=== PATIENT | male | born 1930 | race Caucasian/White ===

== ENCOUNTER → 2016-10-30 | Outpatient (CLI) | payer OTHER ==
[~2016-10-30] MED LIST: ALLO300T2 PO; AMLO5TAB4 PO; ASPI-435 PO; FRS/40 PO; INSU70IN2 SC; LOSA1TAB38 PO; METO50TA16 PO; POTA-74 PO; SIMV80TA2 PO; WARF-246 PO; WARF4TAB43 PO
[2016-10-30 13:33] LABS: BLOOD UREA NITROGEN 21 mg/dl (7-18); BUN/CREATININE RATIO 18.9 (10-20); CALCIUM 8.8 mg/dl (8.5-10.1); CARBON DIOXIDE 26 mmol/L (21-32); CHLORIDE 106 mmol/L (98-107); CHOLESTEROL 112 mg/dl (0-200); GLUCOSE 143 mg/dl (70-99); POTASSIUM 3.9 mmol/L (3.5-5.1); SODIUM 139 mmol/L (136-145); TRIGLYCERIDES 55 mg/dl (0-150); VERY LOW DENSITY LIPOPROT CALC 11 mg/dl
[2016-10-30 13:36] LABS: CHOLESTEROL/HDL RATIO 2.6; ESTIMATED AVERAGE GLUCOSE 166 mg/dl; HA1C FLAG Normal (Normal); HDL CHOLESTEROL 43 mg/dl
[2016-10-30 13:55] LABS: RATIO 15.4 mcg/mg (0-30.0)
== END | disposition home or self-care (01) ==
LOC: C.LABSPEC 12:24
PROVIDERS: ATTEND Internal Medicine
DX: E11.9 Type 2 diabetes mellitus without complications (principal); I10 Essential (primary) hypertension; E78.5 Hyperlipidemia, unspecified

== ENCOUNTER → 2017-11-12 | Outpatient (CLI) | payer OTHER ==
[2017-11-12 14:57] LABS: BLOOD UREA NITROGEN 19 mg/dl (7-18); CALCIUM 8.3 mg/dl (8.5-10.1); CARBON DIOXIDE 26 mmol/L (21-32); CREATININE 1.04 mg/dl (0.60-1.40); GLUCOSE 122 mg/dl (70-99); POTASSIUM 3.9 mmol/L (3.5-5.1); SODIUM 139 mmol/L (136-145)
[2017-11-12 15:04] LABS: CHOLESTEROL 101 mg/dl (0-200); LDL CHOLESTEROL (DIRECT) 61 mg/dl
[2017-11-13 06:04] LABS: HEMOGLOBIN A1C 7.2 % (4.5-5.6)
== END | disposition home or self-care (01) ==
LOC: C.LABSPEC 13:27
PROVIDERS: ATTEND Internal Medicine
DX: E78.5 Hyperlipidemia, unspecified (principal); I10 Essential (primary) hypertension; E11.9 Type 2 diabetes mellitus without complications; Z00.00 Encounter for general adult medical examination without abnormal findings

== ENCOUNTER → 2017-11-17 | Outpatient (CLI) | payer OTHER ==
[~2017-11-17] MED LIST changes: +MULT-506 PO; +WARF5TAB90 PO; +WARF7.5T PO
[2017-11-17 15:10] LABS: BASO % 0.4 %; BASO ABS # 0.04 K/uL (0-0.2); EOS % 3.7 %; HEMATOCRIT 43.8 % (42-52); HEMOGLOBIN 14.7 g/dL (14.0-18.0); IG# 0.03 K/uL (0.00-0.02); LYMPH % 22.4 %; LYMPH ABS # 2.39 K/uL (1.2-3.4); MEAN CELL VOLUME 96.1 fL (80-100); MEAN CORPUSCULAR HEMOGLOBIN 32.2 pg (25-34); MEAN CORPUSCULAR HGB CONC 33.6 g/dl (32-36); MEAN PLATELET VOLUME 10.1 fL (7.4-10.4); MONO % 9.9 %; MONO ABS # 1.06 K/uL (0.11-0.59); NEUT % 63.3 %; NEUT ABS # 6.77 K/uL (1.4-6.5); PLATELET COUNT 166 K/uL (130-400); RED CELL DISTRIBUTION WIDTH CV 13.9 % (11.5-14.5); RED CELL DISTRIBUTION WIDTH SD 48.9 fL (36.4-46.3); WHITE BLOOD COUNT 10.69 K/uL (4.8-10.8)
== END | disposition home or self-care (01) ==
LOC: C.LAB1850 13:47
PROVIDERS: ATTEND Internal Medicine Cardiovascular Disease
DX: I50.9 Heart failure, unspecified (principal)

== ENCOUNTER 2017-11-25 10:56 | Day surgery (SDC) | payer OTHER ==
[~2017-11-25] VITALS: Ht 182.9 cm; Wt 118.0 kg
[~2017-11-25 10:56] MED LIST changes: +CEFAZOLIN 1000MG IV PUSH 7.5 ML IV SCH; +LACTATED RINGER'S 1000ML IV SCH; -MULT-506 PO; -WARF5TAB90 PO; -WARF7.5T PO
[2017-11-25] MEDS ORDERED: WARF7.5T PO ×2 (12:16)
[2017-11-25] MEDS ORDERED: WARF5TAB90 PO ×2 (12:16)
[2017-11-25] MEDS ORDERED: MULT-506 PO ×2 (12:18)
[2017-11-25 12:20] VITALS: BP 131/76; PULSE 65; TEMP 36.7; O2SAT 92; Ht 182.9 cm; Wt 118.0 kg
[2017-11-25 12:23] LABS: INR 1.1 (0.9-1.1)
[2017-11-25] MEDS ORDERED: LIDOCAINE HCL 1% 20 ML VIAL ONE (13:23)
[2017-11-25] MEDS ORDERED: FENTANYL CITRATE INJ 50 MCG/1 ML 2 ML VIAL ONE (13:28)
[2017-11-25] MEDS ORDERED: BACITRACIN OINT 0.9 GM PKT ONE (13:28)
[2017-11-25] MEDS ORDERED: MIDAZOLAM HCL 5 MG/ML 1 ML VIAL ONE (13:28)
--- NOTE | 2017-11-25 13:38 | History & Physical Bridge Note ---
H&P Re-Evaluation Bridge Note: I have examined the patient, reviewed the History & Physical and in the interval since the performance of the History & Physical I have noted the following changes of clinical significance: No changes noted. I reviewed the indications, procedure, risks and alternatives with the patient and his family and they understand and he agrees to proceed. Consent obtained. I also reviewed the risks of sedation and he is agreeable. Consent obtained. His INR today is 1.1.
--- NOTE | 2017-11-25 13:39 | Pre Sedation Assessment ---
Pre Sedation Assessment General Date of Sedation: Nov 25, 2017. Vital Signs Past 12 Hours Date Time Temp Pulse Resp B/P (MAP) Pulse Ox O2 Delivery O2 Flow Rate FiO2 11/25/17 12:20 36.7 65 20 131/76 (94) 92 Room Air Review Cardiovascular: regular rate, rhythm, no murmur Lungs: lungs clear Pre-Sedation Airway Assessment Smoking Status: Former Smoker Hx of Sleep Apnea: Yes Hx of difficult intubation: No Short Thick Neck: No Thyro-mental Distance: > 3 Finger Breadths Mallampati Classification: Class II ASA Classification: Class II NPO Status Date of Last Intake of Fluids: Nov 24, 2017 Time of Last Intake of Fluids: 2354 Date of Last Intake of Solids: Nov 24, 2017 Time of Last Intake of Solids: 2354 Procedure Planning Contraindications for Sedation: None Current Medications Reviewed: Yes Notes The planned sedation has been discussed with the patient. Informed Consent was obtained. I have identified the patient, determined the appropriateness of sedation and have assessed the patient immediately prior to the procedure. All medicine(s) and interventions are by my order.
[2017-11-25] MEDS ORDERED: CEFAZOLIN SOD 1 GM VIAL ONE (13:42)
--- NOTE | 2017-11-25 14:51 | Post Sedation Assessment ---
Post Sedation Assessment General Date of Sedation Nov 25, 2017. Vital Signs: Vital Signs Past 12 Hours Date Time Temp Pulse Resp B/P (MAP) Pulse Ox O2 Delivery O2 Flow Rate FiO2 11/25/17 12:20 36.7 65 20 131/76 (94) 92 Room Air Post Procedure Recovery Score Activity: (2) Moves 4 extremities * Respiration: (2) Deep breath/cough Circulation: (2) +/-20% PreAnes Value Consciousness: (2) Fully Awake Oxygen Saturation: (2) > 92% On Room Air Post Anesthesia Score: 10 Discharge Sedation Level of Care: Fast Track Phase II Post Sedation Plan On clinical assessment, the patient appears to have tolerated the sedation without complications. Patient is recovering as anticipated. Patient will continue to be monitored by nursing and may be discharged when sedation discharge criteria are met per below protocol. Upon Completions of procedure and additional 15 minutes continue every 5 minute vital signs and the P.A.R. score; then discharge to a Phase I or Fast Track to Phase II per the following guidelines: * Discharge Patient to appropriate Phase II area if PAR is 8 or greater or return to pre- procedure baseline. The post - procedure orders will be as directed. * If PAR score is less than 8 or not return to pre-procedure baseline then patient will follow Phase I monitoring till PAR is reached for Phase II. The Phase I may be done in procedure room or may call to secure a Phase I area. * If naloxone or flumazenil are used for reversal, hold in Phase I for an additional 60 -120 minutes before discharge to Phase II. Please call the Sedation Physician to re-evaluate and complete post-note for discharge to Phase II area. Do NOT discharge from procedure sedation or Phase 1 until post- sedation evaluation note is complete by procedure /sedation MD Sedation Discharge Instructions to be given to the patient at discharge to home.
--- NOTE | 2017-11-25 14:51 | [facility] Operative Report ---
Operative Report Operative Date Nov 25, 2017. Pre-Operative Diagnosis Pacemaker CINDY Permanent atrial fibrillation Complete heart block Post-Operative Diagnosis Same Procedure(s) Performed Single-chamber pacemaker replacement Surgeon Dr. Beltrán Mri Tech Surgeon(s) None Estimated Blood Loss 30 cc Findings Stable chronic lead measurements, chronic lead could be used Specimens Old pacemaker, return to [employer] Anesthesia Local with sedation Complication(s) None Disposition MTU Description of Procedure After obtaining informed consent for the procedure, the patient was brought to the laboratory being NPO after midnight. After identification in the laboratory the patient was prepped and draped in the standard sterile manner for a left- sided device replacement. The left prepectoral region was anesthetized with 1% lidocaine local anesthetic and once adequate anesthesia was obtained a 5 cm incision was made through the old implant scar and carried down to the pacemaker generator. The generator was dissected free of tissue and explanted. A bacitracin-soaked sponge (50,000 units in 50 cc normal saline solution) was placed in the pocket. The pacemaker was removed from the leads and connected to an external pacing system. Pacing and sensing characteristics were evaluated in the ventricular lead as noted on the implant data sheet. A new pacemaker was attached to the lead and found to be functioning normally. The bacitracin-soaked sponge was removed from the pocket, the ICD was placed in the pocket with the lead coiled beneath it. The incision was closed with a running double subcutaneous closure of 3-0 Vicryl absorbable suture followed by a running subcuticular skin closure of 4-0 Vicryl absorbable suture. I attest to the content of the Intraoperative Record and any orders documented therein. Any exceptions are noted below.
[2017-11-25 15:00] VITALS: BP 125/65; PULSE 62; TEMP 36.7; O2SAT 90
[2017-11-25] MEDS ORDERED: KETOROLAC TROMETHAMINE 10 MG TAB PO PRN (15:00)
[2017-11-25] MEDS ORDERED: ACETAMINOPHEN 325 MG TAB PO PRN (15:00)
[2017-11-25 15:25] VITALS: BP 128/69; PULSE 60; O2SAT 96
[2017-11-25 16:00] VITALS: BP 109/51; PULSE 61; O2SAT 93
--- NOTE | 2017-11-25 16:23 | Discharge Instructions ---
Discharge Instructions Date of Service Nov 25, 2017. Admission Reason for Admission: Pacemaker battery depletion Discharge Discharge Diagnosis / Problem: Pacemaker replacement Discharge Goals Goal(s): Improve disease control Activity Recommendations Activity Limitations: per Instructions/Follow-up section . Instructions / Follow-Up Instructions / Follow-Up ACTIVITY RECOMMENDATIONS: * Do not raise affected arm over head for 2 weeks. SPECIAL CARE INSTRUCTIONS: * If bleeding occurs, apply direct pressure to area for 5 minutes. * Call your doctor if you have severe pain, fever, drainage or bleeding at site. * Keep dressing on and dry. * Keep any scheduled doctor's appointment. * Implant Card - hand held device with website information given. SKIN IRRITATION: * You may experience some redness and/or swelling in the area where radiation was administered. If any skin irritation occurs, please contact your family physician. FOLLOW UP VISIT: Dr. Beltrán November 9:30 AM. Current Hospital Diet Patient's current hospital diet: AHA Diet (Heart Healthy) Discharge Diet Recommended Diet: AHA Diet (Heart Healthy), Diabetes Type 2 Diet Pending Studies Studies pending at discharge: no Laboratory Results Hemoglobin A1c Test 11/12/17 08:45 Range/Units Estimated Average Glucose 160 mg/dl Hemoglobin A1c 7.2 H 4.5-5.6 % Lipid Panel Test 11/12/17 08:45 Range/Units Triglycerides Level 68 0-150 mg/dl Cholesterol Level 101 0-200 mg/dl HDL Cholesterol 41 mg/dl LDL Cholesterol Direct 61 mg/dl Cholesterol/HDL Ratio 2.5 LDL Cholesterol, Calculated mg/dl Medical Emergencies . Who to Call and When: Medical Emergencies: If at any time you feel your situation is an emergency, please call 911 immediately. . Non-Emergent Contact Non-Emergency issues call your: Primary Care Provider . . "Provider Documentation" section prepared by Lex Beltrán. .
[2017-11-25 16:31] VITALS: BP 110/65; PULSE 60; TEMP 36.7; O2SAT 94
[2017-11-25 17:04] VITALS: BP 120/66; PULSE 61; TEMP 36.6; O2SAT 94
== END 2017-11-25 17:13 | disposition home or self-care (01) ==
LOC: C.ACU 10:56
PROVIDERS: ATTEND Internal Medicine Cardiovascular Disease
DX: Z45.010 Encounter for checking and testing of cardiac pacemaker pulse generator [battery] (principal); I48.2 Chronic atrial fibrillation; I44.2 Atrioventricular block, complete; Z79.01 Long term (current) use of anticoagulants; E78.5 Hyperlipidemia, unspecified; E11.9 Type 2 diabetes mellitus without complications; I50.9 Heart failure, unspecified; M10.9 Gout, unspecified; Z87.891 Personal history of nicotine dependence; Z79.899 Other long term (current) drug therapy; Z79.82 Long term (current) use of aspirin; Z79.4 Long term (current) use of insulin

== ENCOUNTER 2022-03-14 11:40 | Inpatient (IN) ==
[2022-03-14 12:44] LABS: Basophils # (auto) 0.06 K/uL (0-0.2); Basophils % (auto) 0.6 %; Eosinophils # (auto) 0.27 K/uL (0-0.50); Eosinophils % (auto) 2.6 %; Hematocrit (blood only) 38.2 % (40.1-51.0); Hemoglobin 12.5 g/dl (14.0-18.0); Immature Granulocytes # (auto) 0.18 K/uL (0.00-0.02); Immature Granulocytes % (auto) 1.7 %; Lymphocytes # (auto) 1.19 K/uL (1.2-3.4); Lymphocytes % (auto) 11.3 %; Mean Corpuscular Hgb Conc 32.7 g/dL (32.0-36.0); Mean Corpuscular Volume 94.8 fL (80.0-100.0); Mean Platelet Volume 9.7 fL (9.4-12.4); Monocytes # (auto) 0.99 K/uL (0.24-0.82); Monocytes % (auto) 9.4 %; Neutrophils # (auto) 7.87 K/uL (1.4-6.5); Neutrophils % (auto) 74.4 %; Platelet Count 179 K/uL (130-400); RDW Coefficient of Variation 14.8 % (11.5-14.5); RDW Standard Deviation 51.8 fL (36.4-46.3); Red Blood Count 4.03 M/uL (4.63-6.08); White Blood Count 10.56 K/ul (4.8-10.8)
[2022-03-14 13:03] LABS: INR 1.5 (0.9-1.1); Partial Thromboplastin Ratio 1.6; Partial Thromboplastin Time 42.7 Seconds (21.0-31.0)
[2022-03-14 13:13] LABS: Troponin I High Sensitivity 11.8 pg/ml (0-20)
[2022-03-14 13:14] LABS: Alanine Aminotransferase 12 U/L (7-52); Albumin Level 3.6 gm/dl (3.4-5.0); Alkaline Phosphatase 83 U/L (34-104); Anion Gap 5 (3-11); Aspartate Aminotransferase 22 U/L (13-39); BUN Creatinine Ratio 28.9 (10-20); Blood Urea Nitrogen 33 mg/dl (6-23); Calcium 9.1 mg/dl (8.5-10.1); Carbon Dioxide 27 mmol/L (21-32); Chloride 106 mmol/L (98-107); Est GFR (African American) 65.7 ml/min; Est GFR (Non-African American) 56.7 ml/min; Globulin 3.7 gm/dl (2.5-4.0); Glucose 99 mg/dl (70-99(Fasting)); Potassium 4.2 mmol/L (3.5-5.1); Sodium 138 mmol/L (136-145); Total Protein 7.3 gm/dl (6.0-8.3)
[2022-03-14 13:43] LABS: Adenovirus PCR Not Detected (NotDetected); Bordetella parapertussis PCR Not Detected (NotDetected); Bordetella pertussis PCR Not Detected (NotDetected); Chlamydia pneumoniae PCR Not Detected (NotDetected); Coronavirus 229E PCR Not Detected (NotDetected); Coronavirus CoV-2 (COVID19)PCR Not Detected (NotDetected); Coronavirus HKU1 PCR Not Detected (NotDetected); Coronavirus NL63 PCR Not Detected (NotDetected); Coronavirus OC43PCR Not Detected (NotDetected); Human Metapneumovirus PCR Not Detected (NotDetected); Influenza A PCR Not Detected (NotDetected); Influenza B PCR Not Detected (NotDetected); Mycoplasma pneumoniae PCR Not Detected (NotDetected); Parainfluenza Virus 1 PCR Not Detected (NotDetected); Parainfluenza Virus 2 PCR Not Detected (NotDetected); Parainfluenza Virus 3 PCR Not Detected (NotDetected); Parainfluenza Virus 4 PCR Not Detected (NotDetected); Respiratory Syncytial VirusPCR Not Detected (NotDetected); Rhinovirus/Enterovirus PCR Not Detected (NotDetected)
--- NOTE | 2022-03-14 14:14 | Emergency Department Note ---
History of Present Illness General Chief Complaint: Shortness of Breath/Dyspnea Stated Complaint: SHORTNESS OF BREATH;SWELLING Time Seen by Provider: 03/14/22 14:00 History of Present Illness Provider Complaint: shortness of breath Onset (ago): day(s) (1) Severity: moderate Consistency/Duration: + progressively worsening Relieved By: + oxygen, + rest and + upright position Exacerbated By: + lying flat and + exertion Context: no recent illness Associated symptoms: + orthopnea and + chest congestion; no chest pain, no fever, no cough, no wheezing, no sputum production, no hemoptysis or no nausea/vomiting HPI Narrative: Patient reports increased swelling of the bilateral lower extremities. He states he was seen at wound care today and referred to the emergency department for low oxygen level. Home Medications Medication Instructions Recorded Confirmed Type allopurinol 300 mg tablet 300 mg PO DAILY 11/23/18 03/14/22 History amlodipine 10 mg tablet 10 mg PO DAILY #90 tabs 11/23/18 03/14/22 History furosemide 40 mg tablet 40 mg PO .COMPLEX 11/23/18 03/14/22 History losartan 100 mg tablet 100 mg PO DAILY 11/23/18 03/14/22 History multivitamin 1 tab PO DAILY 11/23/18 03/14/22 History potassium chloride 10 mEq 10 meq PO BID 11/23/18 03/14/22 History tablet,extended release metformin 1,000 mg tablet 1,000 mg PO BID 03/18/19 03/14/22 History simvastatin 80 mg tablet 40 mg PO DAILY 06/28/19 03/14/22 History cholecalciferol (vitamin D3) 25 25 mcg PO DAILY 01/01/21 03/14/22 History mcg (1,000 unit) capsule metoprolol succinate 100 mg 100 mg PO DAILY #90 tabs 01/01/21 03/14/22 Rx tablet,extended release 24 hr rivaroxaban 20 mg tablet (Xarelto) 20 mg PO DAILY #90 tabs 01/01/21 03/14/22 Rx clotrimazole 1 % topical cream 1 applic topical .COMPLEX #45 grams 06/29/21 03/14/22 Rx ammonium lactate 12 % lotion 1 applic topical DAILY 30 days 07/03/21 03/14/22 Rx #400 grams gabapentin 300 mg capsule 300 mg PO DAILY #90 caps 01/24/22 03/14/22 Rx insulin aspar prt-insulin aspart 14 unit subcut QPM 01/25/22 03/14/22 History 100 unit/mL (70-30) subcutaneous soln (Novolog Mix 70-30 U-100 Insuln) cephalexin 500 mg capsule 500 mg PO TID 14 days #42 caps 03/04/22 03/14/22 Rx Allergies Allergy/AdvReac Type Severity Reaction Status Date / Time No Known Drug Allergies Allergy Verified 03/14/22 10:55 Past Med/Surg History Medical History Acute diverticulitis (06/25/13) Atrial fibrillation 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 Fall 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 Pacemaker Surgical History Cardiac pacemaker Status post partial amputation of foot Family History Brother Colorectal cancer Denies family history of Ovarian cancer Prostate cancer Myocardial infarction Breast cancer Social History Smoking Status: Never smoker Second Hand Exposure: No; Hx Alcohol Use: No Hx Substance Use: No Preferred Language: Thai Communication Ability: Effective Visual Impairment: Limited Hearing Ability: Use of Hearing Aid Wheel Inspector Required: No Beliefs That Will Affect Care: None marital status: / Current Living Situation: Alone current occupational status: retired How many Children do You have: 4 How many Children do You have Comment: all children local and able to help with care as needed Feels Safe at Home: Yes Childhood Exposure to Second-Hand Smoke: No during the past year weight has: decreased > 10 lbs Dental Care, Regularly: No Physical Activity Frequency: 5-6 Times per Week Seatbelt Use: always Sunscreen Use: No Review of Systems A total of 10 systems reviewed and were otherwise negative Physical Exam Vital Signs: Vital Signs - 24 hr 03/14/22 11:56 03/14/22 12:29 03/14/22 14:17 Temperature 35.8 C L 36.5 C Temperature Source Temporal Artery Sc an Oral Pulse Rate 74 Pulse Rhythm Regular Pulse Strength Normal Respiratory Rate 18 Blood Pressure 99/58 L Blood Pressure Tami n 71 Pulse Oximetry 93 98 Oxygen Delivery Me thod Room Air Nasal Cannula Oxygen Flow Rate 2 Sepsis Recent Feve r Within 48 Hours No Sepsis New/Unexpla ined Change in Men kelsey Status N/A Sepsis Action Take n by Nursing No Action Required Oxygen Flow Rate - Titration Pulse Oximetry Pos t Tiitration 03/14/22 14:18 Temperature Temperature Source Pulse Rate Pulse Rhythm Pulse Strength Respiratory Rate Blood Pressure Blood Pressure Tami n Pulse Oximetry 87 L Oxygen Delivery Me thod Room Air Oxygen Flow Rate Sepsis Recent Feve r Within 48 Hours Sepsis New/Unexpla ined Change in Men kelsey Status Sepsis Action Take n by Nursing Oxygen Flow Rate - Titration 2 Pulse Oximetry Pos t Tiitration 92 Physical Exam: Physical Exam GENERAL: He is oriented to person, place, and time. He appears well-developed and well-nourished. He does not appear distressed. HENT: Exam performed. - Head: Normocephalic and atraumatic. - Right Ear: External ear normal. No mastoid tenderness. - Left Ear: External ear normal. No mastoid tenderness. - Mouth/Throat: The oropharynx is clear and moist. No trismus in the jaw. No dental abscesses or uvula swelling. No oropharyngeal exudate or tonsillar abscesses. EYES: Conjunctivae and EOM are normal. Pupils are equal, round, and reactive to light. Right eye exhibits no discharge. Left eye exhibits no discharge. No scleral icterus. NECK: Normal range of motion. Neck supple. No JVD present. No spinous process tenderness present. No carotid bruit present. No rigidity. No tracheal deviation and normal range of motion present. No Brudzinski's sign and no Kernig's sign noted. CV: Normal rate, regular rhythm, normal heart sounds and intact distal pulses. 2+ pitting edema of the bilateral lower extremities. Palpable radial pulses bue. PULM/CHEST: Rales bilaterally ABD: The abdomen is soft. MUSC/SKEL: Normal range of motion. There is no tenderness or deformity. LYMPH: No cervical adenopathy. NEURO: Motor and sensation grossly intact. Course Course 1400: The patient was evaluated in room C8. A complete history and physical exam was performed Cardiac monitoring: An order was placed for continuous cardiac monitoring. The monitor shows a rate of 70 with paced rhythm EMR reviewed. Patient has severe valvular aortic stenosis. On echo from January 2022. Patient is on Xarelto and reports that he is compliant with his medications, no missed doses. Patient does not usually wear oxygen. 1439: Nursing staff report made with patient oxygen saturation dropped to 87% on room air. Patient was placed on 2 L nasal cannula which improved his oxygen saturation. Pacemaker is interrogated. Spoke with: [employer] union representative who states that the patient has a history of A. fib with complete heart block and he has an old lead but his pacemaker and leads are functioning okay. 1546: Vital signs stable on supplemental oxygen via nasal cannula. Labs are within normal limits with a troponin of 11.8. proBNP and VBG are still pending. Bio fire negative. Chest x-ray shows cardiomegaly with cephalization. Patient will be treated for pulmonary edema with Lasix 40 mg IV push. Patient be admitted to the [facility] Hospitalist team Dr. Thompson's team will be made notified. Medical Decision Making Laboratory Data Result diagrams: 03/14/22 12:03/14/22 12: Lab Results 03/14/22 03/14/22 03/14/22 Range/Units 12: 12: 12: WBC 10.56 (4.8-10.8) K/ul RBC 4.03 L (4.63-6.08) M/uL Hgb 12.5 L (14.0-18.0) g/dl Hct 38.2 L (40.1-51.0) % MCV 94.8 (80.0-100.0) fL MCH 31.0 (25.0-34.0) pg MCHC 32.7 (32.0-36.0) g/dL RDW Std Deviation 51.8 H (36.4-46.3) fL RDW Coeff of Joelle 14.8 H (11.5-14.5) % Plt Count 179 (130-400) K/uL MPV 9.7 (9.4-12.4) fL Immature Gran % (Auto) 1.7 % Neut % (Auto) 74.4 % Lymph % (Auto) 11.3 % [place] % (Auto) 9.4 % Eos % (Auto) 2.6 % Baso % (Auto) 0.6 % Neut # (Auto) 7.87 H (1.4-6.5) K/uL Lymph # (Auto) 1.19 L (1.2-3.4) K/uL [place] # (Auto) 0.99 H (0.24-0.82) K/uL Eos # (Auto) 0.27 (0-0.50) K/uL Baso # (Auto) 0.06 (0-0.2) K/uL Immature Gran # (Auto) 0.18 H (0.00-0.02) K/uL PT 16.0 H (9.0-12.0) Seconds INR 1.5 H (0.9-1.1) APTT 42.7 H (21.0-31.0) Seconds PTT Ratio 1.6 Sodium 138 (136-145) mmol/L Potassium 4.2 (3.5-5.1) mmol/L Chloride 106 (98-107) mmol/L Carbon Dioxide 27 (21-32) mmol/L Anion Gap 5 (3-11) BUN 33 H (6-23) mg/dl Creatinine 1.14 (0.6-1.4) mg/dl Est Cr Clr Drug Dosing Not Reportable Est GFR ( Amer) 65.7 ml/min Est GFR (Non-Af Amer) 56.7 ml/min BUN/Creatinine Ratio 28.9 H (10-20) Glucose 99 (70-99(Fasting)) mg/dl Calcium 9.1 (8.5-10.1) mg/dl Magnesium (1.7-2.4) mg/dl Total Bilirubin 1.0 (0.2-1.0) mg/dl AST 22 (13-39) U/L ALT 12 (7-52) U/L Alkaline Phosphatase 83 (34-104) U/L Troponin I High Sens 11.8 (0-20) pg/ml Total Protein 7.3 (6.0-8.3) gm/dl Albumin 3.6 (3.4-5.0) gm/dl Globulin 3.7 (2.5-4.0) gm/dl Albumin/Globulin Ratio 1.0 (0.9-2) Adenovirus (PCR) (NotDetected) B. pertussis DNA (PCR) (NotDetected) B.parapertussis DNA PCR (NotDetected) C. pneumoniae DNA (PCR) (NotDetected) Coronavirus OC43 (PCR) (NotDetected) Coronavirus HKU1 (PCR) (NotDetected) Coronavirus 229E (PCR) (NotDetected) SARS-CoV-2 (PCR) (NotDetected) Coronavirus NL63 (PCR) (NotDetected) Human Metapneumovir PCR (NotDetected) Influenza Type A (PCR) (NotDetected) Influenza Type B (PCR) (NotDetected) M. pneumoniae (PCR) (NotDetected) Parainfluenza 1 (PCR) (NotDetected) Parainfluenza 2 (PCR) (NotDetected) Parainfluenza 3 (PCR) (NotDetected) Parainfluenza 4 (PCR) (NotDetected) RSV (PCR) (NotDetected) Entero/Rhino (PCR) (NotDetected) 03/14/22 03/14/22 Range/Units 12:23 12:23 WBC (4.8-10.8) K/ul RBC (4.63-6.08) M/uL Hgb (14.0-18.0) g/dl Hct (40.1-51.0) % MCV (80.0-100.0) fL MCH (25.0-34.0) pg MCHC (32.0-36.0) g/dL RDW Std Deviation (36.4-46.3) fL RDW Coeff of Joelle (11.5-14.5) % Plt Count (130-400) K/uL MPV (9.4-12.4) fL Immature Gran % (Auto) % Neut % (Auto) % Lymph % (Auto) % [place] % (Auto) % Eos % (Auto) % Baso % (Auto) % Neut # (Auto) (1.4-6.5) K/uL Lymph # (Auto) (1.2-3.4) K/uL [place] # (Auto) (0.24-0.82) K/uL Eos # (Auto) (0-0.50) K/uL Baso # (Auto) (0-0.2) K/uL Immature Gran # (Auto) (0.00-0.02) K/uL PT (9.0-12.0) Seconds INR (0.9-1.1) APTT (21.0-31.0) Seconds PTT Ratio Sodium (136-145) mmol/L Potassium (3.5-5.1) mmol/L Chloride (98-107) mmol/L Carbon Dioxide (21-32) mmol/L Anion Gap (3-11) BUN (6-23) mg/dl Creatinine (0.6-1.4) mg/dl Est Cr Clr Drug Dosing Est GFR ( Amer) ml/min Est GFR (Non-Af Amer) ml/min BUN/Creatinine Ratio (10-20) Glucose (70-99(Fasting)) mg/dl Calcium (8.5-10.1) mg/dl Magnesium 2.1 (1.7-2.4) mg/dl Total Bilirubin (0.2-1.0) mg/dl AST (13-39) U/L ALT (7-52) U/L Alkaline Phosphatase (34-104) U/L Troponin I High Sens (0-20) pg/ml Total Protein (6.0-8.3) gm/dl Albumin (3.4-5.0) gm/dl Globulin (2.5-4.0) gm/dl Albumin/Globulin Ratio (0.9-2) Adenovirus (PCR) Not Detected (NotDetected) B. pertussis DNA (PCR) Not Detected (NotDetected) B.parapertussis DNA PCR Not Detected (NotDetected) C. pneumoniae DNA (PCR) Not Detected (NotDetected) Coronavirus OC43 (PCR) Not Detected (NotDetected) Coronavirus HKU1 (PCR) Not Detected (NotDetected) Coronavirus 229E (PCR) Not Detected (NotDetected) SARS-CoV-2 (PCR) Not Detected (NotDetected) Coronavirus NL63 (PCR) Not Detected (NotDetected) Human Metapneumovir PCR Not Detected (NotDetected) Influenza Type A (PCR) Not Detected (NotDetected) Influenza Type B (PCR) Not Detected (NotDetected) M. pneumoniae (PCR) Not Detected (NotDetected) Parainfluenza 1 (PCR) Not Detected (NotDetected) Parainfluenza 2 (PCR) Not Detected (NotDetected) Parainfluenza 3 (PCR) Not Detected (NotDetected) Parainfluenza 4 (PCR) Not Detected (NotDetected) RSV (PCR) Not Detected (NotDetected) Entero/Rhino (PCR) Not Detected (NotDetected) Imaging Data Radiologist's Impression: Chest X-Ray 03/14/22 11:59 XR chest 1V portable CLINICAL HISTORY: Dyspnea COMPARISON STUDY: Chest radiograph June 30, 2013. FINDINGS: A left subclavian pacer is in place. Cardiomegaly is unchanged. Interstitial thickening favors mild pulmonary edema. There is mild elevation of the right hemidiaphragm. Lucency under the right hemidiaphragm likely reflects gas within bowel. Bibasilar airspace opacities are present. No pneumothorax. IMPRESSION: 1. Cardiomegaly with mild interstitial pulmonary edema. Possible small bilateral pleural effusions. 2. Bibasilar opacities which could reflect atelectasis or consolidation. Radiographic follow-up is recommended. ACT 112: Negative or not required by law. Electronically signed by: Adiel Flores M.D. 03/14/2022 3:36 PM ECG Data Interpretation: Paced rhythm with a rate of 66. QRS 194 QTC 566. There is some ectopy. [facility] Narrative 1400: The patient was evaluated in room C8. A complete history and physical exam was performed Cardiac monitoring: An order was placed for continuous cardiac monitoring. The monitor shows a rate of 70 with paced rhythm EMR reviewed. Patient has severe valvular aortic stenosis. On echo from January 2022. Patient is on Xarelto and reports that he is compliant with his medications, no missed doses. Patient does not usually wear oxygen. 1439: Nursing staff report made with patient oxygen saturation dropped to 87% on room air. Patient was placed on 2 L nasal cannula which improved his oxygen saturation. Pacemaker is interrogated. Spoke with: [employer] union representative who states that the patient has a history of A. fib with complete heart block and he has an old lead but his pacemaker and leads are functioning okay. 1546: Vital signs stable on supplemental oxygen via nasal cannula. Labs are within normal limits with a troponin of 11.8. proBNP and VBG are still pending. Bio fire negative. Chest x-ray shows cardiomegaly with cephalization. Patient will be treated for pulmonary edema with Lasix 40 mg IV push. Patient be admitted to the [facility] hospitalist team Dr. Thompson's team will be made notified. Impression & Plan Hypoxia, Pulmonary edema Discharge Plan Visit Data Chief Complaint: Shortness of Breath/Dyspnea Stated Complaint: SHORTNESS OF BREATH;SWELLING ED Provider: Phu Keane Discharge Problem: Hypoxia, Pulmonary edema Patient Disposition: Admitted As Inpatient Forms Stand Alone Forms: My [facility] Prescriptions Prescriptions: No Action metformin 1,000 mg tablet 1,000 mg PO BID ammonium lactate 12 % lotion 1 applic topical DAILY 30 Days Qty: 400 3RF clotrimazole 1 % cream 1 applic topical .COMPLEX Qty: 45 2RF Rx Instructions: 1 applic topical to hands and feet 1-2 times daily as directed. insulin asp prt-insulin aspart [Novolog Mix 70-30 U-100 Insuln] 100 unit/mL (70-30) solution 14 unit subcut QPM Rx Instructions: 35 units qAM and 10 units qPM cephalexin 500 mg capsule 500 mg PO TID 14 Days Qty: 42 0RF gabapentin 300 mg capsule 300 mg PO DAILY Qty: 90 3RF cholecalciferol (vitamin D3) 25 mcg (1,000 unit) capsule 25 mcg PO DAILY metoprolol succinate 100 mg tablet extended release 24 hr 100 mg PO DAILY Qty: 90 3RF Xarelto 20 mg tablet 20 mg PO DAILY Qty: 90 3RF Rx Instructions: must administer with evening meal allopurinol 300 mg tablet 300 mg PO DAILY amlodipine 10 mg tablet 10 mg PO DAILY Qty: 90 losartan 100 mg tablet 100 mg PO DAILY furosemide 40 mg tablet 40 mg PO .COMPLEX Label Comments: 40 mg PO 1 1/2 tablets daily Rx Instructions: 40 mg PO 1 1/2 tablets daily potassium chloride 10 mEq tablet extended release 10 meq PO BID multivitamin tablet 1 tab PO DAILY simvastatin 80 mg tablet 40 mg PO DAILY Referrals Referrals: Tara Benitez MD [Primary Care Provider] -
--- NOTE | 2022-03-14 15:38 | XRay Report ---
XR chest 1V portable CLINICAL HISTORY: Dyspnea COMPARISON STUDY: Chest radiograph June 30, 2013. FINDINGS: A left subclavian pacer is in place. Cardiomegaly is unchanged. Interstitial thickening fav ors mild pulmonary edema. There is mild elevation of the right hemidiaphragm. Lucency under the right hemidiaphragm likely reflects gas within bowel. Bibasilar airspace opacities are present. No pneumot horax. IMPRESSION: 1. Cardiomegaly with mild interstitial pulmonary edema. Possible small bilateral pleural effusions. 2. Bibasilar opacities which could reflect atelectasis or consolidation. Radiographic follow-up is re commended. ACT 112: Negative or not required by law. Electronically signed by: Adiel Flores M.D. 03/14/2022 3:36 PM
[2022-03-14] MEDS ORDERED: FUROSEMIDE 40 MG/4 ML VIAL IV ONE (15:45)
--- NOTE | 2022-03-14 16:03 | History & Physical Report ---
Date of Service March 14, 2022 Assessment & Plan (1) Hypoxia: Plan: -Patient noted to be hypoxic upon arrival to the ED to the high 80's on RA. Patient is anticoagulated on Xarelto without missed doses so low suspicion for PE, no sings or labs to suggest infection at this adelaida, patient appears volume up on exam with pulmonary edema on CXR and BNP in the 400's (no previous value to compare). -Patient did not take his am dose of lasix this morning in preparation for his wound care appointment -At the time of my exam he had not received IV lasix -Will order an additional 40 mg IV lasix now for a total of 80 mg IV and re- evaluate in 2 hours, if patient is able to be weaned off O2 and feeling improved he and his son would like him to go home -Monitor intake/output and daily weight -Continue to monitor on tele and pulse oximetry, wean O2 to RA as able -If he is admitted will order incentive spirometry and flutter therapy -AM CBC, BMP, and mag (2) Venous ulcer of left leg: Plan: -Was seen in wound care clinic today and they told the patient his wound is healing well, looks good here on exam -Continue TID Keflex (3) Dyslipidemia: Plan: -Continue simvastatin (4) Hypertension: Plan: -Hemodynamically stable -Continue losartan, amlodipine, and metoprolol (5) Permanent atrial fibrillation: Plan: -Continue xarelto and metoprolol (6) Diabetes mellitus type 2, controlled: Plan: -Continue 14 units HS -Will start with correction factor of 40 and carb correction of 14 -Hold metformin while admitted -BSG checks ACHS (7) Third degree AV block: Plan: -S/P pacemaker placement, currently rate controlled Plan The patient was discussed with Dr. Cordova at the time of the admission History of Present Illness Chief Complaint: SOB Primary Care Provider: Tara Benitez MD Pk is an 89 year old male with a PMH significant for Severe aortic stenosis, HTN, dyslipidemia, DM II, diabetic foot ulcers, afib on xarelto, third degree heart block S/P single chamber pacemaker placement, and gout who presented to the [facility] ED on 03/14/22 with a chief complaint of SOB. In the ED the patient was initially found to be afebrile, hemodynamically stable and stable on RA. Per review of his vitals, the patient was noted to be hypoxic at 87% on RA around 1418 and was placed on oxygen at that time. Labs were remarkable for a WBC WNL, stable Hgb, absolute neutrophil count of 7.87, stable renal function and electrolytes, High sensitivity troponin of 11.8, and negative respiratory biofire. Chest xray shows "1. Cardiomegaly with mild interstitial pulmonary edema. Possible small bilateral pleural effusions.. Bibasilar opacities which could reflect atelectasis or consolidation. Radiographic follow-up is recommended.". Prior to admission the patient was ordered 40 mg IV lasix. At the time of the exam the patient was resting comfortably in bed in no acute distress currently on 2L NC with his son sitting bedside, history was obtained from both. They state that he has noticed increased SOB and lower extremity edema for the past 4 days. He normally takes 60 mg PO lasix in the morning but did not take his am dose today as he had a wound care clinic appointment. The patient has been seeing the wound care team for a chronic wound on his left lower extremity, he is currently taking Keflex TID. He states that when he got to the wound care clinic he asked them to get him a wheelchair as he felt more SOB and was unsure he could make it down the [place] walking. He states that they told him his wound is healing well. At the end of his appointment they advised him to be seen in the ED for his SOB to be safe. At the start of my exam I was under the impression that the patient had been given 40 mg IV lasix approximately 30 minutes prior. I turned his oxygen off while I examined him and his SpO2 fell to 88% while he spoke. He denies recent fevers, chills, headache, changes in vision, hearing, taste, and smell, chest pain, cough, abdominal pain, nausea, vomiting, dysuria, hematuria, and recent falls. He does not use oxygen at home and uses Cpap at night. Towards the end of my exam the patient's nurse came in to give him the dose of the IV lasix that was ordered previously, there had been a delay. I spoke to the patient and his son regarding giving him IV lasix and waiting approximately 2 hours to see if it improves his breathing enough for him to go home, they are both in agreement with that plan. I spoke to them regarding code status, he is a limited code, he would not want CPR or defibrillation but would want a trial of intubation. [place] refer to Dr. Cordova's attestation for any changes to the treatment plan. Allergies Allergy/AdvReac Type Severity Reaction Status Date / Time No Known Drug Allergies Allergy Verified 03/14/22 10:55 Home Medications Medication Instructions Recorded Confirmed Type allopurinol 300 mg tablet 300 mg PO DAILY 11/23/18 03/14/22 History amlodipine 10 mg tablet 10 mg PO DAILY #90 tabs 11/23/18 03/14/22 History furosemide 40 mg tablet 40 mg PO .COMPLEX 11/23/18 03/14/22 History losartan 100 mg tablet 100 mg PO DAILY 11/23/18 03/14/22 History multivitamin 1 tab PO DAILY 11/23/18 03/14/22 History potassium chloride 10 mEq 10 meq PO BID 11/23/18 03/14/22 History tablet,extended release metformin 1,000 mg tablet 1,000 mg PO BID 03/18/19 03/14/22 History simvastatin 80 mg tablet 40 mg PO DAILY 06/28/19 03/14/22 History cholecalciferol (vitamin D3) 25 25 mcg PO DAILY 01/01/21 03/14/22 History mcg (1,000 unit) capsule metoprolol succinate 100 mg 100 mg PO DAILY #90 tabs 01/01/21 03/14/22 Rx tablet,extended release 24 hr rivaroxaban 20 mg tablet (Xarelto) 20 mg PO DAILY #90 tabs 01/01/21 03/14/22 Rx clotrimazole 1 % topical cream 1 applic topical .COMPLEX #45 grams 06/29/21 03/14/22 Rx ammonium lactate 12 % lotion 1 applic topical DAILY 30 days 07/03/21 03/14/22 Rx #400 grams gabapentin 300 mg capsule 300 mg PO DAILY #90 caps 01/24/22 03/14/22 Rx insulin aspar prt-insulin aspart 14 unit subcut QPM 01/25/22 03/14/22 History 100 unit/mL (70-30) subcutaneous soln (Novolog Mix 70-30 U-100 Insuln) cephalexin 500 mg capsule 500 mg PO TID 14 days #42 caps 11/21/22 12/01/22 Rx Past Med/Surg History Medical History Acute diverticulitis (06/25/13) Atrial fibrillation 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 Fall 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 Pacemaker Surgical History Cardiac pacemaker Status post partial amputation of foot Family History Brother Colorectal cancer Denies family history of Ovarian cancer Prostate cancer Myocardial infarction Breast cancer Social History Smoking Status: Never smoker Second Hand Exposure: No; Hx Alcohol Use: No Hx Substance Use: No Preferred Language: Greenlandic Communication Ability: Effective Visual Impairment: Limited Hearing Ability: Use of Hearing Aid Retail Service Technician Required: No Beliefs That Will Affect Care: None marital status: / Current Living Situation: Alone current occupational status: retired How many Children do You have: 4 How many Children do You have Comment: all children local and able to help with care as needed Feels Safe at Home: Yes Childhood Exposure to Second-Hand Smoke: No during the past year weight has: decreased > 10 lbs Dental Care, Regularly: No Physical Activity Frequency: 5-6 Times per Week Seatbelt Use: always Sunscreen Use: No Review of Systems Review of Systems: Denies current fever, chills, headache, changes in vision, hearing, taste, and smell, chest pain, cough, abdominal pain, nausea, vomiting, diarrhea, hematemesis, melena, dysuria, hematuria, and recent falls. All systems have been reviewed and are otherwise negative. Physical Exam Physical Exam: Physical Exam: General: In no acute distress, stated age, well-nourished, chronically ill- appearing, non-toxic appearing HEENT: Normocephalic, atraumatic, no scleral icterus, pupils around round, symmetrical, and reactive to light, moist mucus membranes, +JVD, trachea midline, no thyromegaly Chest/Pulm: No respiratory distress, symmetrical chest expansion, decreased breath sounds in the BL lower lung martin, expiratory wheezing noted in the other lung martin Cardiac: RRR, 4/6 systolic murmur noted Abdomen: Negative for ascites and bruising, normoactive bowel sounds, soft, non-tender to palpation throughout Musculoskeletal: Symmetrical and without signs of acute trauma, upper and lower extremities with full ROM, no atrophy, spasticity, or flaccidity Extremities: Radial, dorsalis pedis, and posterior tibial pulses are intact and symmetrical, 2+ pitting edema noted in the BL LE's Skin: Patient with well healing wound on the left lower extremity without signs of drainage or infection Neuro: Alert and oriented to person, place, month, year, and president, no focal defects, CN II-XII tested and intact, finger to nose test negative, no tremors noted Psych: No acute distress, calm and cooperative during the exam Results & Data Results & Data ([facility]) Vital Signs (Past 12 Hours) Vital Signs Temp Pulse Resp BP Pulse Ox O2 Del Method O2 Flow Rate 03/14/22 14:18 87 L Room Air 03/14/22 14:17 36.5 C 03/14/22 12:29 98 Nasal Cannula 2 03/14/22 11:56 35.8 C L 74 18 99/58 L 93 Room Air Laboratory Results Abnormal lab results 03/14/22 03/14/22 03/14/22 Range/Units 12:23 12:23 12:23 RBC 4.03 L (4.63-6.08) M/uL Hgb 12.5 L (14.0-18.0) g/dl Hct 38.2 L (40.1-51.0) % RDW Std Deviation 51.8 H (36.4-46.3) fL RDW Coeff of Joelle 14.8 H (11.5-14.5) % Neut # (Auto) 7.87 H (1.4-6.5) K/uL Lymph # (Auto) 1.19 L (1.2-3.4) K/uL Mcdowell # (Auto) 0.99 H (0.24-0.82) K/uL Immature Gran # (Auto) 0.18 H (0.00-0.02) K/uL PT 16.0 H (9.0-12.0) Seconds INR 1.5 H (0.9-1.1) APTT 42.7 H (21.0-31.0) Seconds BUN 33 H (6-23) mg/dl BUN/Creatinine Ratio 28.9 H (10-20) B-Natriuretic Peptide (0-100) pg/ml 03/14/22 Range/Units 15:56 RBC (4.63-6.08) M/uL Hgb (14.0-18.0) g/dl Hct (40.1-51.0) % RDW Std Deviation (36.4-46.3) fL RDW Coeff of Joelle (11.5-14.5) % Neut # (Auto) (1.4-6.5) K/uL Lymph # (Auto) (1.2-3.4) K/uL Mcdowell # (Auto) (0.24-0.82) K/uL Immature Gran # (Auto) (0.00-0.02) K/uL PT (9.0-12.0) Seconds INR (0.9-1.1) APTT (21.0-31.0) Seconds BUN (6-23) mg/dl BUN/Creatinine Ratio (10-20) B-Natriuretic Peptide 435 H (0-100) pg/ml Diagnostic Findings Chest X-Ray 03/14/22 11:59 XR chest 1V portable CLINICAL HISTORY: Dyspnea COMPARISON STUDY: Chest radiograph June 30, 2013. FINDINGS: A left subclavian pacer is in place. Cardiomegaly is unchanged. Interstitial thickening favors mild pulmonary edema. There is mild elevation of the right hemidiaphragm. Lucency under the right hemidiaphragm likely reflects gas within bowel. Bibasilar airspace opacities are present. No pneumothorax. IMPRESSION: 1. Cardiomegaly with mild interstitial pulmonary edema. Possible small bilateral pleural effusions. 2. Bibasilar opacities which could reflect atelectasis or consolidation. Radiographic follow-up is recommended. ACT 112: Negative or not required by law. Electronically signed by: Adiel Flores M.D. 03/14/2022 3:36 PM ECG Additional Comments: Ventricular-paced rhythm with premature ventricular or aberrantly conducted complexes Abnormal ECG When compared with ECG of 25-NOV-2017 15:28, Vent. rate has increased BY 6 BPM Code Status & VTE Plan Code Status Conditional code; No CPR or defibrillation but would want a trial of intubation VTE Prophylaxis Plan VTE Prophylaxis will be ordered: Yes Supervising Physician Co-Signing Physician Notes Patient was seen and examined independently I discussed the case with Clayton JONES I reviewed pertinent past medical social family history and also the plan of care and agree with the plan of care. A 11-year-old male who is history of aortic stenosis who presented to wound care clinic for continued follow-up of an infected foot. Patient reportedly did not take his diuretic this morning for fear of having to urinate in route to or shortly after arriving at the wound care office. Patient also notes that since the weekend he has been increasing short of breath at home. He denies dietary medical indiscretion up until today. Subsequently at wound care he was dyspneic on exertion asked for a wheelchair and was referred to the hospital for evaluation where he was found to have some pulmonary edema and lower extremity edema. Patient claims that his thighs actually were more swollen earlier in the week. In the emergency department the patient had a fairly stable other results including a bio fire and VBG. Subsequently discussed with the family will attempt diuresis and if successful in weaning oxygen supplementation the patient may go home however if unsuccessful the patient will remain in the facility have his medications adjusted and interact with his art sales consultant Dr. Jovel for further medical optimization of his aortic stenosis Upon my evaluation the patient was very hard of hearing but he was awake and alert his heart was regular there was a systolic murmur his lungs had bibasilar crackles which clear toward the apex difficult to assess JVD due to his facial hair lower extremities are with 2+ edema pretibially bilaterally I cannot appreciate significant edema in his thighs. He did have Tubex gauze on his lower legs with orthopedic shoes and we did asked the ER nurses to remove his shoes and trousers so that he can urinate into the urinal more freely. Any exceptions will be noted below PG Care Time/CCT Total # of Minutes Spent Total Time Spent with Patient: Total time spent is greater than 50% in coordination of care (as documented) at patient's floor/unit and/or counseling patient: Coding Level of Care Code Established Pt INT OBSERVATION CARE 50M LVL 2 Patient Type Established History Comprehensive Exam Comprehensive Medical Decision Making Moderate Complexity Diagnoses Hypoxia R09.02 Venous ulcer of left leg I83.029; L97.929 Dyslipidemia E78.5 Hypertension I10 Permanent atrial fibrillation I48.21 Diabetes mellitus type 2, controlled E11.9 Third degree AV block I44.2
[2022-03-14 16:11] LABS: HCO3 VBG 27 mmol/L; Oxygen Saturation VBG 74.5 %; PCO2 VBG 44 mmHg (38-50); PO2 VBG 45 mmHg
[2022-03-14] MEDS ORDERED: FUROSEMIDE 40 MG/4 ML VIAL IV STA (16:42)
[2022-03-14] MEDS ORDERED: GLUCOSE 40% GEL 15 GM TUBE PO PRN (18:11)
[2022-03-14] MEDS ORDERED: GLUCAGON FOR INJ 1 MG VIAL SQ PRN (18:11)
[2022-03-14] MEDS ORDERED: CARBOHYDRATES FOR HYPOGLYCEMIA PO PRN (18:11)
[2022-03-14] MEDS ORDERED: GLUCOSE 10 TAB/TUBE PO PRN (18:11)
[2022-03-14] MEDS ORDERED: DEXTROSE 50% 50 ML SYRINGE IV PRN (18:11)
[2022-03-14] MEDS ORDERED: ACETAMINOPHEN 325 MG TAB PO PRN (18:15)
[2022-03-14] MEDS ORDERED: Patient's HEIGHT &/or WEIGHT Needed SCH (18:30)
[2022-03-14] MEDS: INSULIN ASPART PER UNIT SC SCH (20:55)
[2022-03-14] MEDS ORDERED: ENOXAPARIN INJ 40 MG/0.4 ML SYR SQ SCH ×2 (21:00→22:07)
[2022-03-14] MEDS ORDERED: LANTUS PER UNIT CHARGE SQ SCH (21:00)
--- NOTE | 2022-03-14 21:00 | Electrocardiogram Report ---
Test Reason : Blood Pressure : / mmHG Vent. Rate : 066 BPM Atrial Rate : 039 BPM P-R Int : 000 ms QRS Dur : 194 ms QT Int : 540 ms P-R-T Axes : 000 242 086 degrees QTc Int : 566 ms Ventricular-paced rhythm with premature ventricular or aberrantly conducted complexes Abnormal ECG When compared with ECG of 25-NOV-2017 15:28, Vent. rate has increased BY 6 BPM Confirmed by Kenyon Bello ([id number]) on 03/14/2022 8:59:49 PM Referred By: Confirmed By:Melchor Bello
[2022-03-15] MEDS: POTASSIUM CHLORIDE 10 MEQ TABCR PO SCH ×3 (02:08→22:03)
[2022-03-15] MEDS: cephALEXin 500 MG CAP PO SCH ×4 (04:57→21:53)
[2022-03-15 07:15] LABS: Hematocrit (blood only) 34.8 % (40.1-51.0); Hemoglobin 11.4 g/dl (14.0-18.0); Mean Corpuscular Hemoglobin 31.2 pg (25.0-34.0); Mean Corpuscular Hgb Conc 32.8 g/dL (32.0-36.0); Mean Corpuscular Volume 95.3 fL (80.0-100.0); Mean Platelet Volume 9.1 fL (9.4-12.4); Platelet Count 140 K/uL (130-400); RDW Coefficient of Variation 14.9 % (11.5-14.5); RDW Standard Deviation 51.6 fL (36.4-46.3); Red Blood Count 3.65 M/uL (4.63-6.08); White Blood Count 9.06 K/ul (4.8-10.8)
[2022-03-15 07:41] LABS: BUN Creatinine Ratio 28.7 (10-20); Calcium 8.6 mg/dl (8.5-10.1); Creatinine Clr Calc Pharmacy 60.3 ml/min; Est GFR (African American) 70.2 ml/min; Est GFR (Non-African American) 60.5 ml/min
[2022-03-15] MEDS: INSULIN ASPART PER UNIT SC SCH ×4 (10:04→22:04)
[2022-03-15] MEDS: LANTUS PER UNIT CHARGE SQ SCH ×2 (10:05→22:04)
[2022-03-15] MEDS: amLODIPine BESYLATE 5 MG TAB PO SCH (10:06)
[2022-03-15] MEDS: allopurinoL 300 MG TAB PO SCH (10:06)
[2022-03-15] MEDS: GABAPENTIN 300 MG CAP PO SCH (10:08)
[2022-03-15] MEDS: LOSARTAN POTASSIUM 50 MG TAB PO SCH (10:08)
[2022-03-15] MEDS: SIMVASTATIN 40 MG TAB PO SCH (10:08)
[2022-03-15] MEDS: METOPROLOL SUCC 50MG EXT REL TAB PO SCH (10:08)
[2022-03-15] MEDS ORDERED: FUROSEMIDE 40 MG/4 ML VIAL IV ONE (10:32)
[2022-03-15 10:46] LABS: Appearance Urine Clear (Clear); Bacteria Urine Automated Negative (Negative); Bilirubin Urine Negative (Negative); Blood Urine 2+ (Negative); Cast Urine Automated 0 /lpf (0-5); Color Urine Yellow; Glucose Urine UA Negative (Negative); Ketones Urine Negative (Negative); Leukocyte Esterase Urine 1+ (Negative); Nitrite Urine Negative (Negative); Protein Urine Negative (Negative); RBC Urine Automated >30 /hpf (0-4); Specific Gravity Urine 1.017 (1.000-1.030); Urobilinogen Urine Negative (Negative); pH Urine 5.5 (4.5-7.5)
[2022-03-15] MEDS: CHOLECALCIFEROL 1,000 UNITS 25 MCG TAB PO SCH ×2 (10:47→15:57)
--- NOTE | 2022-03-15 13:09 | XRay Report ---
XR chest 2V PA/lateral CLINICAL HISTORY: f/u hypoxia COMPARISON STUDY: Chest radiograph March 14, 2022. FINDINGS: Dual lead left subclavian pacer is in place. Moderate cardiomegaly is noted. There is no pn eumothorax. Small bilateral pleural effusions are similar to prior exam. Mild interstitial edema pers ists. There is elevation of the right hemidiaphragm. Lucency under the right hemidiaphragm represents gas within bowel. No consolidation is identified to suggest pneumonia. IMPRESSION: Cardiomegaly. Mild interstitial pulmonary edema and small bilateral pleural effusions, similar to radha or scan. ACT 112: Negative or not required by law. Electronically signed by: Adiel Flores M.D. 03/15/2022 1:08 PM
--- NOTE | 2022-03-15 15:49 | Hospitalist Progress Note ---
Date of Service March 15, 2022 Assessment & Plan (1) (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: Plan: Presents with hypoxia, dyspnea, elevated BNP, CXR with cardiomegaly, pulm edema, small bilat pleural effusions. With bilat LE edema ECHO 01/2022 with preserved EF and severe -improving now with IV lasix -continue lasix 40mg IV bid -follow I/Os, daily weights, change to low sodium diet and fluid restrict to 1500mL -consult Cardiology given symptomatic severe -monitor on tele for arrhythmia -follow BMP, mag and replace lytes as needed-continues on potassium chloride 10 twice daily (2) Hypoxia: Plan: Acute respiratory failure with hypoxia secondary to Acute pulmonary edema and acute on chronic HFpEF Continues on 3 LNC supplemental O2 Continue diuresis Wean off O2 as able to (3) Aortic stenosis: Plan: Severe on recent ECHO, MARISELA 0.79 cm2 with CHF as above Consult Cardiology May be a candidate for TAVR (4) Venous ulcer of left leg: Plan: With superficial venous ulcer left anterior leg as well as left great toe -Was seen in wound care clinic on the day of admission and they told the patient his wound is healing well, looks good here on exam -Continue TID Keflex for previous cellulitis and MSSA on wound culture Consult wound care nurse (5) Dyslipidemia: Plan: -Continue simvastatin (6) Hypertension: Plan: Blood pressures are normal -Continue losartan, amlodipine, and metoprolol as well as IV Lasix (7) Permanent atrial fibrillation: Plan: With paced rhythm on the monitor and underlying permanent atrial fibrillation -Continue xarelto and metoprolol (8) Diabetes mellitus type 2, controlled: Plan: Blood glucose is well controlled here and recent hemoglobin A1c well controlled at 6.4% in 01/2022 -Hold metformin while admitted -BSG checks ACHS -Continue Lantus and NovoLog (9) Third degree AV block: Plan: -S/P pacemaker placement (10) Itching: Plan: Patient has excoriated macular lesions all over his anterior chest and shoulders for many months, reports pruritus especially at nighttime Add triamcinolone cream twice daily for now and hydroxyzine as needed Recommend follow-up with dermatology as an outpatient Plan DVT prophylaxis Xarelto Disposition-continued stay on telemetry Admission and Anticipated Discharge Date Admission Date: March 14, 2022 Subjective Pt reports ongoing dyspnea. Legs have been swollen for a while. Remains on supplemental O2 and does not have this at home. Tele with paced rhythm, rates 60 s Review of Systems Review of Systems: All systems reviewed & are unremarkable except as noted in HPI & below Integumentary: itching on shoulders and upper chest for months with excoriations Physical Exam Constitutional: WD/WN, vitals as above Eyes: + anicteric sclerae Neck: trachea midline, no thyromegaly Respiratory: normal respiratory effort; no cough Auscultation: + diminished lung sounds (throughout due to body habitus) and + crackles (bibasilar); no rhonchi and no wheezes Cardiovascular: Rate/Rhythm: regular rate and regular rhythm Heart Sounds: + murmur (3/6 MONIQUE at RUSB) Extremities: + edema (2+ pitting edema to thighs bilat) Chest (Breasts): Chest: normal inspection of chest Gastrointestinal (Abdomen): normal bowel sounds, soft, nontender, no hepatosplenomegaly Musculoskeletal: Extremities: no cyanosis and no clubbing Skin: + ulcer (left anterior leg 0.5cm,left great toe,no erythema) numerous scabbed over macular lesions on anterior chest wall and bilat shoulders, no surrounding erythema Neurologic: moves all extremities and awake; no focal motor deficits Psychiatric: A+Ox3, euthymic affect Results & Data Results & Data ([facility]) Vital Signs (Past 12 Hours) Vital Signs Temp Pulse Pulse Resp BP Pulse Ox O2 Del Method 03/15/22 15:28 60 03/15/22 15:05 36.6 C 70 20 103/68 97 Nasal Cannula 03/15/22 08:00 Nasal Cannula 03/15/22 11:13 36.6 C 84 20 109/61 94 Nasal Cannula 03/15/22 07:59 36.7 C 69 20 114/71 92 Nasal Cannula 03/15/22 07:43 61 O2 Flow Rate 03/15/22 15:28 03/15/22 15:05 03/15/22 08:00 3 03/15/22 11:13 3 03/15/22 07:59 3 03/15/22 07:43 Laboratory Results 03/15/22 03/15/22 03/15/22 Range/Units 11:49 10:30 07:40 WBC (4.8-10.8) K/ul RBC (4.63-6.08) M/uL Hgb (14.0-18.0) g/dl Hct (40.1-51.0) % MCV (80.0-100.0) fL MCH (25.0-34.0) pg MCHC (32.0-36.0) g/dL RDW Std Deviation (36.4-46.3) fL RDW Coeff of Joelle (11.5-14.5) % Plt Count (130-400) K/uL MPV (9.4-12.4) fL Sodium (136-145) mmol/L Potassium (3.5-5.1) mmol/L Chloride (98-107) mmol/L Carbon Dioxide (21-32) mmol/L Anion Gap (3-11) BUN (6-23) mg/dl Creatinine (0.6-1.4) mg/dl Est Cr Clr Drug Dosing ml/min Est GFR ( Amer) ml/min Est GFR (Non-Af Amer) ml/min BUN/Creatinine Ratio (10-20) Glucose (70-99(Fasting)) mg/dl POC Glucose 240 H 128 H (70-99) mg/dl Lactate (0.4-2.0) mmol/L Calcium (8.5-10.1) mg/dl Magnesium (1.7-2.4) mg/dl B-Natriuretic Peptide (0-100) pg/ml Urine Color Yellow Urine Appearance Clear (Clear) Urine pH 5.5 (4.5-7.5) Ur Specific [place] 1.017 (1.000-1.030) Urine Protein Negative (Negative) Urine Glucose (UA) Negative (Negative) Urine Ketones Negative (Negative) Urine Blood 2+ H (Negative) Urine Nitrite Negative (Negative) Urine Bilirubin Negative (Negative) Urine Urobilinogen Negative (Negative) Ur Leukocyte Esterase 1+ H (Negative) Urine WBC (Auto) 1-5 (0-5) /hpf Urine RBC (Auto) >30 H (0-4) /hpf U Hyaline Cast (Auto) 0 (0-5) /lpf U Epithel Cells (Auto) 5-10 H (0-5) /lpf Urine Bacteria (Auto) Negative (Negative) 03/15/22 03/15/22 03/14/22 Range/Units 06:53 06:53 20:50 WBC 9.06 (4.8-10.8) K/ul RBC 3.65 L (4.63-6.08) M/uL Hgb 11.4 L (14.0-18.0) g/dl Hct 34.8 L (40.1-51.0) % MCV 95.3 (80.0-100.0) fL MCH 31.2 (25.0-34.0) pg MCHC 32.8 (32.0-36.0) g/dL RDW Std Deviation 51.6 H (36.4-46.3) fL RDW Coeff of Joelle 14.9 H (11.5-14.5) % Plt Count 140 (130-400) K/uL MPV 9.1 L (9.4-12.4) fL Sodium 139 (136-145) mmol/L Potassium 4.0 (3.5-5.1) mmol/L Chloride 105 (98-107) mmol/L Carbon Dioxide 30 (21-32) mmol/L Anion Gap 4 (3-11) BUN 31 H (6-23) mg/dl Creatinine 1.08 (0.6-1.4) mg/dl Est Cr Clr Drug Dosing 60.3 ml/min Est GFR ( Amer) 70.2 ml/min Est GFR (Non-Af Amer) 60.5 ml/min BUN/Creatinine Ratio 28.7 H (10-20) Glucose 112 H (70-99(Fasting)) mg/dl POC Glucose 135 H (70-99) mg/dl Lactate (0.4-2.0) mmol/L Calcium 8.6 (8.5-10.1) mg/dl Magnesium 2.0 (1.7-2.4) mg/dl B-Natriuretic Peptide (0-100) pg/ml Urine Color Urine Appearance (Clear) Urine pH (4.5-7.5) Ur Specific [place] (1.000-1.030) Urine Protein (Negative) Urine Glucose (UA) (Negative) Urine Ketones (Negative) Urine Blood (Negative) Urine Nitrite (Negative) Urine Bilirubin (Negative) Urine Urobilinogen (Negative) Ur Leukocyte Esterase (Negative) Urine WBC (Auto) (0-5) /hpf Urine RBC (Auto) (0-4) /hpf U Hyaline Cast (Auto) (0-5) /lpf U Epithel Cells (Auto) (0-5) /lpf Urine Bacteria (Auto) (Negative) 03/14/22 03/14/22 Range/Units 15:56 00:06 WBC (4.8-10.8) K/ul RBC (4.63-6.08) M/uL Hgb (14.0-18.0) g/dl Hct (40.1-51.0) % MCV (80.0-100.0) fL MCH (25.0-34.0) pg MCHC (32.0-36.0) g/dL RDW Std Deviation (36.4-46.3) fL RDW Coeff of Joelle (11.5-14.5) % Plt Count (130-400) K/uL MPV (9.4-12.4) fL Sodium (136-145) mmol/L Potassium (3.5-5.1) mmol/L Chloride (98-107) mmol/L Carbon Dioxide (21-32) mmol/L Anion Gap (3-11) BUN (6-23) mg/dl Creatinine (0.6-1.4) mg/dl Est Cr Clr Drug Dosing ml/min Est GFR ( Amer) ml/min Est GFR (Non-Af Amer) ml/min BUN/Creatinine Ratio (10-20) Glucose (70-99(Fasting)) mg/dl POC Glucose (70-99) mg/dl Lactate 0.9 (0.4-2.0) mmol/L Calcium (8.5-10.1) mg/dl Magnesium (1.7-2.4) mg/dl B-Natriuretic Peptide 435 H (0-100) pg/ml Urine Color Urine Appearance (Clear) Urine pH (4.5-7.5) Ur Specific [place] (1.000-1.030) Urine Protein (Negative) Urine Glucose (UA) (Negative) Urine Ketones (Negative) Urine Blood (Negative) Urine Nitrite (Negative) Urine Bilirubin (Negative) Urine Urobilinogen (Negative) Ur Leukocyte Esterase (Negative) Urine WBC (Auto) (0-5) /hpf Urine RBC (Auto) (0-4) /hpf U Hyaline Cast (Auto) (0-5) /lpf U Epithel Cells (Auto) (0-5) /lpf Urine Bacteria (Auto) (Negative) PG Care Time/CCT Total # of Minutes Spent Total Time Spent with Patient: Total time spent is greater than 50% in coordination of care (as documented) at patient's floor/unit and/or counseling patient: Coding Level of Care Code 56469 Subseq Hosp Care Lvl 3 Diagnoses (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 I50.30 Hypoxia R09.02 Aortic stenosis I35.0 Venous ulcer of left leg I83.029; L97.929 Dyslipidemia E78.5 Hypertension I10 Permanent atrial fibrillation I48.21 Diabetes mellitus type 2, controlled E11.9 Third degree AV block I44.2 Itching L29.9
[2022-03-15] MEDS: TRIAMCINOLONE ACET 0.1% CR 15 GM TUBE EXT SCH ×2 (17:27→22:03)
[2022-03-15] MEDS: RIVAROXABAN 20 MG TAB PO SCH (17:28)
[2022-03-15] MEDS: FUROSEMIDE 40 MG/4 ML VIAL IV SCH (17:28)
--- NOTE | 2022-03-15 17:36 | Cardiology Consultation ---
Date of Consultation March 15, 2022 Assessment & Plan (1) Aortic stenosis: (2) Pulmonary edema: (3) Permanent atrial fibrillation: (4) Third degree AV block: Plan 1. dyspnea: Likely related to pulmonary vascular congestion. He is undergoing a good diuresis. Hemodynamically stable. Renal function stable. Breathing improved. This is possibly related either to an element of diastolic dysfunction or more likely his aortic stenosis. At this point would seem reasonable to continue his diuresis monitoring his renal function and electrolytes closely. At the time of discharge he may benefit from an increased dose of diuretic, 80 mg daily. 2. Aortic stenosis: Severe. Recently discovered. We discussed symptoms which to be aware previously. Very possible his current admission is related to severe aortic stenosis. No other symptoms such as chest pain or dizziness. I did discuss the process of evaluation for a TAVR. If he is in the hospital next week coronary angiography could be performed. However, if he is feeling better and his volume status is improved he could easily be discharged and this will be arranged as an outpatient. 3. Atrial fibrillation: Permanent. continue rivaroxaban 4. normally functioning single-chamber permanent pacemaker History of Present Illness Reason for Consultation: Shortness of breath Requesting Physician: Beatrice Attending Physician: Kathleen Barron MD History of Present Illness the patient is an 89-year-old gentleman with a history of permanent atrial fibrillation, placement of a single-chamber permanent pacemaker and recently discovered severe aortic stenosis presented to the hospital with worsening dyspnea. Patient states that since last Friday he has been having some worsening breathing difficulty. This progressed to the point where he had difficulty even getting into his son's car to go to the wound clinic today. Feels that he may have had some additional lower extremity edema over this time. He did not report associated chest discomfort or chest pressure. No dizziness or lightheadedness. Occasional palpitations which are longstanding in nature. He did not describe significant orthopnea. Emergency room is felt to have an element of pulmonary edema and underwent administration of intravenous diuretics. Today he feels better. He states that his breathing is much improved. He was lying flat in bed and felt comfortable at the time of this interview. Allergies Allergy/AdvReac Type Severity Reaction Status Date / Time No Known Drug Allergies Allergy Verified 03/14/22 10:55 Home Medications Medication Instructions Recorded Confirmed Type allopurinol 300 mg tablet 300 mg PO DAILY 11/23/18 03/14/22 History amlodipine 10 mg tablet 10 mg PO DAILY #90 tabs 11/23/18 03/14/22 History furosemide 40 mg tablet 40 mg PO .COMPLEX 11/23/18 03/14/22 History losartan 100 mg tablet 100 mg PO DAILY 11/23/18 03/14/22 History multivitamin 1 tab PO DAILY 11/23/18 03/14/22 History potassium chloride 10 mEq 10 meq PO BID 11/23/18 03/14/22 History tablet,extended release metformin 1,000 mg tablet 1,000 mg PO BID 03/18/19 03/14/22 History simvastatin 80 mg tablet 40 mg PO DAILY 06/28/19 03/14/22 History cholecalciferol (vitamin D3) 25 25 mcg PO DAILY 01/01/21 03/14/22 History mcg (1,000 unit) capsule metoprolol succinate 100 mg 100 mg PO DAILY #90 tabs 01/01/21 03/14/22 Rx tablet,extended release 24 hr rivaroxaban 20 mg tablet (Xarelto) 20 mg PO DAILY #90 tabs 01/01/21 03/14/22 Rx clotrimazole 1 % topical cream 1 applic topical .COMPLEX #45 grams 06/29/21 03/14/22 Rx ammonium lactate 12 % lotion 1 applic topical DAILY 30 days 07/03/21 03/14/22 Rx #400 grams gabapentin 300 mg capsule 300 mg PO DAILY #90 caps 01/24/22 03/14/22 Rx insulin aspar prt-insulin aspart 14 unit subcut QPM 01/25/22 03/14/22 History 100 unit/mL (70-30) subcutaneous soln (Novolog Mix 70-30 U-100 Insuln) cephalexin 500 mg capsule 500 mg PO TID 14 days #42 caps 03/04/22 03/14/22 Rx Patient History Medical History (Updated 03/15/22 @ 15:54 by Kathleen Barron MD) (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 Acute diverticulitis (06/25/13) Aortic stenosis Atrial fibrillation 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 Fall 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 Pacemaker Surgical History Cardiac pacemaker Status post partial amputation of foot Family History Brother Colorectal cancer Denies family history of Ovarian cancer Prostate cancer Myocardial infarction Breast cancer Social History Smoking Status: Former smoker Second Hand Exposure: No; Do You Dip or Chew Tobacco: No; Tobacco Cessation Education Requested by Patient: No Hx Alcohol Use: No Hx Substance Use: No Preferred Language: Tajik Communication Ability: Effective Visual Impairment: Limited Hearing Ability: Use of Hearing Aid Medical Billing Specialist Required: No Beliefs That Will Affect Care: None marital status: / Current Living Situation: Alone current occupational status: retired How many Children do You have: 4 How many Children do You have Comment: all children local and able to help with care as needed Other Information That Helps Us Care for You: No Feels Safe at Home: Yes Safety Concerns: Feels Safe At This Time Childhood Exposure to Second-Hand Smoke: No during the past year weight has: decreased > 10 lbs Dental Care, Regularly: No Physical Activity Frequency: 5-6 Times per Week Seatbelt Use: always Sunscreen Use: No Assistive Devices: Cane, Denture - Lower, Hearing Aid - Bilateral and Walker Review of Systems Review of Systems: Per HPI. No recent abdominal complaints. No recent fevers or chills. Physical Exam Physical Exam: The patient is alert and oriented. Mood and affect appeared normal. He answered all questions appropriately. HEENT: Pupils are equal and reactive to light and accommodation. Extraocular movements are intact. The sclerae are anicteric. Neuro: Cranial nerves intact Neck: Patient's neck is supple. He has palpable carotid pulses bilaterally without bruits on auscultation. There is no evidence of jugular venous diste ntion. The thyroid is not enlarged. Lungs: occasional crackles in the bases bilaterally. Normal respiratory effort. No expiratory wheezing. Cardiac: Heart demonstrates a regular rate and rhythm. Normal S1 and S2. Crescendo systolic murmur. Pulses: The patient has palpable radial pulses bilaterally that are equal in intensity Extremities: There was no evidence of hypoperfusion. There is no cyanosis or clubbing. Mild bilateral lower extremity edema. Skin: I did not appreciate any rashes on examination today. Results & Data ([facility]) Vital Signs (Past 12 Hours) Vital Signs Temp Pulse Pulse Resp BP Pulse Ox O2 Del Method 03/15/22 15:28 60 03/15/22 15:05 36.6 C 70 20 103/68 97 Nasal Cannula 03/15/22 08:00 Nasal Cannula 03/15/22 11:13 36.6 C 84 20 109/61 94 Nasal Cannula 03/15/22 07:59 36.7 C 69 20 114/71 92 Nasal Cannula 03/15/22 07:43 61 O2 Flow Rate 03/15/22 15:28 03/15/22 15:05 03/15/22 08:00 3 03/15/22 11:13 3 03/15/22 07:59 3 03/15/22 07:43 Laboratory Results Abnormal Lab Results 03/14/22 03/15/22 03/15/22 20:50 06:53 06:53 WBC 9.06 RBC 3.65 L Hgb 11.4 L Hct 34.8 L MCV 95.3 MCH 31.2 MCHC 32.8 RDW Std Deviation 51.6 H RDW Coeff of Joelle 14.9 H Plt Count 140 MPV 9.1 L Sodium 139 Potassium 4.0 Chloride 105 Carbon Dioxide 30 Anion Gap 4 BUN 31 H Creatinine 1.08 Est Cr Clr Drug Dosing 60.3 Est GFR ( Amer) 70.2 Est GFR (Non-Af Amer) 60.5 BUN/Creatinine Ratio 28.7 H Glucose 112 H POC Glucose 135 H Calcium 8.6 Magnesium 2.0 Urine Color Urine Appearance Urine pH Ur Specific [place] Urine Protein Urine Glucose (UA) Urine Ketones Urine Blood Urine Nitrite Urine Bilirubin Urine Urobilinogen Ur Leukocyte Esterase Urine WBC (Auto) Urine RBC (Auto) U Hyaline Cast (Auto) U Epithel Cells (Auto) Urine Bacteria (Auto) 03/15/22 03/15/22 03/15/22 07:40 10:30 11:49 WBC RBC Hgb Hct MCV MCH MCHC RDW Std Deviation RDW Coeff of Joelle Plt Count MPV Sodium Potassium Chloride Carbon Dioxide Anion Gap BUN Creatinine Est Cr Clr Drug Dosing Est GFR ( Amer) Est GFR (Non-Af Amer) BUN/Creatinine Ratio Glucose POC Glucose 128 H 240 H Calcium Magnesium Urine Color Yellow Urine Appearance Clear Urine pH 5.5 Ur Specific [place] 1.017 Urine Protein Negative Urine Glucose (UA) Negative Urine Ketones Negative Urine Blood 2+ H Urine Nitrite Negative Urine Bilirubin Negative Urine Urobilinogen Negative Ur Leukocyte Esterase 1+ H Urine WBC (Auto) 1-5 Urine RBC (Auto) >30 H U Hyaline Cast (Auto) 0 U Epithel Cells (Auto) 5-10 H Urine Bacteria (Auto) Negative 03/15/22 17:01 WBC RBC Hgb Hct MCV MCH MCHC RDW Std Deviation RDW Coeff of Joelle Plt Count MPV Sodium Potassium Chloride Carbon Dioxide Anion Gap BUN Creatinine Est Cr Clr Drug Dosing Est GFR ( Amer) Est GFR (Non-Af Amer) BUN/Creatinine Ratio Glucose POC Glucose 108 H Calcium Magnesium Urine Color Urine Appearance Urine pH Ur Specific [place] Urine Protein Urine Glucose (UA) Urine Ketones Urine Blood Urine Nitrite Urine Bilirubin Urine Urobilinogen Ur Leukocyte Esterase Urine WBC (Auto) Urine RBC (Auto) U Hyaline Cast (Auto) U Epithel Cells (Auto) Urine Bacteria (Auto) Diagnostic Findings chest x-ray obtained the time admission revealed some cardiomegaly with mild pulmonary vascular congestion. Echocardiogram obtained 01/25/2022: Normal LV systolic function with ejection fraction 50-55%. Moderate LVH. Moderate left atrial dilation. Severe aortic stenosis. Mild mitral regurgitation. Moderate tricuspid regurgitation. ECG Additional Comments: EKG demonstrates atrial fibrillation with paced ventricular rhythm PG Care Time/CCT Total # of Minutes Spent Total Time Spent with Patient: Total time spent is greater than 50% in coordination of care (as documented) at patient's floor/unit and/or counseling patient: Coding Level of Care Code 36256 Initial Inpt Care Lvl 3 Diagnoses Aortic stenosis I35.0 Pulmonary edema J81.1 Permanent atrial fibrillation I48.21 Third degree AV block I44.2
[2022-03-15] MEDS: hydrOXYzine HCl 10 MG TAB PO PRN (22:03)
[2022-03-15] MEDS ORDERED: POLYETHYLENE (MIRALAX) 17 GM PACK PO PRN (22:13)
[2022-03-16 06:26] LABS: Hematocrit (blood only) 33.9 % (40.1-51.0); Mean Corpuscular Hemoglobin 30.3 pg (25.0-34.0); Mean Corpuscular Hgb Conc 32.4 g/dL (32.0-36.0); Mean Corpuscular Volume 93.4 fL (80.0-100.0); Mean Platelet Volume 9.4 fL (9.4-12.4); Platelet Count 142 K/uL (130-400); RDW Coefficient of Variation 14.4 % (11.5-14.5); RDW Standard Deviation 49.3 fL (36.4-46.3); Red Blood Count 3.63 M/uL (4.63-6.08); White Blood Count 8.33 K/ul (4.8-10.8)
[2022-03-16 06:47] LABS: Iron 42 mcg/dl (35-175); Total Iron Binding Cap Calc 335 mcg/dl (250-450); Transferrin (FE) Percent Satur 13 % (20-50); Unsaturated Iron Binding Cap 293 mcg/dl (155-355)
[2022-03-16 07:12] LABS: BUN Creatinine Ratio 28.4 (10-20); Calcium 8.5 mg/dl (8.5-10.1); Creatinine Clr Calc Pharmacy 55.8 ml/min; Est GFR (African American) 64.4 ml/min; Est GFR (Non-African American) 55.5 ml/min; Magnesium 2.1 mg/dl (1.7-2.4); Potassium 3.7 mmol/L (3.5-5.1)
[2022-03-16 07:14] LABS: Ferritin 36.2 ng/ml (8-388)
[2022-03-16] MEDS: INSULIN ASPART PER UNIT SC SCH ×4 (08:43→22:28)
[2022-03-16] MEDS: LANTUS PER UNIT CHARGE SQ SCH ×2 (08:44→22:34)
[2022-03-16] MEDS: amLODIPine BESYLATE 5 MG TAB PO SCH (08:45)
[2022-03-16] MEDS: allopurinoL 300 MG TAB PO SCH (08:45)
[2022-03-16] MEDS: cephALEXin 500 MG CAP PO SCH ×3 (08:46→20:27)
[2022-03-16] MEDS: CHOLECALCIFEROL 1,000 UNITS 25 MCG TAB PO SCH (08:46)
[2022-03-16] MEDS: FUROSEMIDE 40 MG/4 ML VIAL IV SCH ×2 (08:46→17:44)
[2022-03-16] MEDS: METOPROLOL SUCC 50MG EXT REL TAB PO SCH (08:47)
[2022-03-16] MEDS: LOSARTAN POTASSIUM 50 MG TAB PO SCH (08:47)
[2022-03-16] MEDS: POTASSIUM CHLORIDE 10 MEQ TABCR PO SCH (08:47)
[2022-03-16] MEDS: GABAPENTIN 300 MG CAP PO SCH (08:47)
[2022-03-16] MEDS: SIMVASTATIN 40 MG TAB PO SCH (08:48)
[2022-03-16] MEDS: TRIAMCINOLONE ACET 0.1% CR 15 GM TUBE EXT SCH ×2 (08:48→20:28)
--- NOTE | 2022-03-16 13:41 | Hospitalist Progress Note ---
Date of Service March 16, 2022 Assessment & Plan (1) (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: Plan: Presents with hypoxia, dyspnea, elevated BNP, CXR with cardiomegaly, pulm edema, small bilat pleural effusions. With bilat LE edema ECHO 01/2022 with preserved EF and severe -improving now with IV lasix, weight down 2.7 kg, I's and O's -3.2 L thus far, peripheral edema mildly improved, dyspnea improved, remains on 3 LNC but pulse ox 95%-could be weaned down -continue lasix 40mg IV bid -follow I/Os, daily weights, low sodium diet and fluid restrict to 1500mL -consult Cardiology given symptomatic severe appreciated-will get evaluation for TAVR as an outpatient versus cardiac catheterization inpatient next week if still admitted -Continue to monitor on tele for arrhythmia-has paced rhythm with underlying A. fib permanent -follow BMP, mag and replace lytes as needed-increase potassium chloride to 20 mill equivalents p.o. twice daily (2) Hypoxia: Plan: Acute respiratory failure with hypoxia secondary to Acute pulmonary edema and acute on chronic HFpEF Continues on 3 LNC supplemental O2 but could be weaned down Continue diuresis Wean off O2 as able to (3) Aortic stenosis: Plan: Severe on recent ECHO, MARISELA 0.79 cm2 with CHF as above Consult Cardiology appreciated-as above Eval for TAVR (4) Venous ulcer of left leg: Plan: With superficial venous ulcer left anterior leg as well as left great toe -Was seen in wound care clinic on the day of admission and they told the patient his wound is healing well, looks good here on exam -Continue TID Keflex for previous cellulitis and MSSA on wound culture-last day of treatment will be 03/17 Consult wound care nurse With stasis dermatitis of the legs (5) Dyslipidemia: Plan: -Continue simvastatin (6) Hypertension: Plan: Blood pressures are normal -Continue losartan, amlodipine, and metoprolol as well as IV Lasix (7) Permanent atrial fibrillation: Plan: With paced rhythm on the monitor and underlying permanent atrial fibrillation -Continue xarelto and metoprolol (8) Diabetes mellitus type 2, controlled: Plan: Blood glucose is well controlled here and recent hemoglobin A1c well controlled at 6.4% in 01/2022 -Hold metformin while admitted -BSG checks ACHS -Continue Lantus and NovoLog (9) Third degree AV block: Plan: -S/P pacemaker placement (10) Itching: Plan: Patient has excoriated macular lesions all over his anterior chest and shoulders for many months, reports pruritus especially at nighttime Added triamcinolone cream twice daily for now and hydroxyzine as needed-this is helping Recommend follow-up with dermatology as an outpatient for upper body rash. He has been seen by dermatology previously for venous stasis dermatitis of the legs (11) Diabetic peripheral neuropathy associated with type 2 diabetes mellitus: Plan: Gabapentin 300mg daily was started about 6 weeks ago and this can rarely cause fluid retention/peripheral edema Will decrease dose to 100mg daily for now so as to avoid withdrawal and still help with his neuropathy Plan DVT prophylaxis Xarelto Disposition-continued stay on telemetry, slowly improving, possible discharge to home in the next 1 to 2 days Admission and Anticipated Discharge Date Admission Date: March 14, 2022 Subjective Patient reports feeling less short of breath, but still feels generally weak. He is urinating quite a bit. He moved his bowels today. Patient questions if the recent gabapentin he was placed on could have caused him to retain fluid. Telemetry with paced rhythm and underlying A. fib with rates in the 80s. Review of Systems Review of Systems: All systems reviewed & are unremarkable except as noted in HPI & below Physical Exam Constitutional: WD/WN, vitals as above Eyes: + anicteric sclerae Neck: trachea midline, no thyromegaly Respiratory: normal respiratory effort; no cough Auscultation: + diminished lung sounds (throughout due to body habitus); no crackles, no rhonchi and no wheezes Cardiovascular: Rate/Rhythm: regular rate and regular rhythm Heart Sounds: + murmur (3/6 MONIQUE at RUSB) Extremities: + edema (1+ pitting edema to knees bilat, improved) Chest (Breasts): Chest: normal inspection of chest Gastrointestinal (Abdomen): normal bowel sounds, soft, nontender, no hepatosplenomegaly Musculoskeletal: Extremities: no cyanosis and no clubbing Skin: + ulcer (left anterior leg 0.5cm,left great toe,no erythema) Also with multiple small macular scabs on anterior chest and shoulders and posterior shoulders Stasis dermatitis on legs bilaterally Neurologic: moves all extremities and awake; no focal motor deficits Psychiatric: A+Ox3, euthymic affect Results & Data Results & Data ([facility]) Vital Signs (Past 12 Hours) Vital Signs Temp Pulse Resp BP Pulse Ox O2 Del Method O2 Flow Rate 03/16/22 11:59 36.6 C 89 18 105/70 95 Nasal Cannula 2 03/16/22 08:18 36.4 C L 67 18 101/61 93 Nasal Cannula 3 03/16/22 02:26 36.6 C 73 18 109/60 95 Nasal Cannula 3 Laboratory Results 03/16/22 03/16/22 03/16/22 Range/Units 16:19 11:43 07:29 WBC (4.8-10.8) K/ul RBC (4.63-6.08) M/uL Hgb (14.0-18.0) g/dl Hct (40.1-51.0) % MCV (80.0-100.0) fL MCH (25.0-34.0) pg MCHC (32.0-36.0) g/dL RDW Std Deviation (36.4-46.3) fL RDW Coeff of Joelle (11.5-14.5) % Plt Count (130-400) K/uL MPV (9.4-12.4) fL Sodium (136-145) mmol/L Potassium (3.5-5.1) mmol/L Chloride (98-107) mmol/L Carbon Dioxide (21-32) mmol/L Anion Gap (3-11) BUN (6-23) mg/dl Creatinine (0.6-1.4) mg/dl Est Cr Clr Drug Dosing ml/min Est GFR ( Amer) ml/min Est GFR (Non-Af Amer) ml/min BUN/Creatinine Ratio (10-20) Glucose (70-99(Fasting)) mg/dl POC Glucose 135 H 161 H 114 H (70-99) mg/dl Calcium (8.5-10.1) mg/dl Magnesium (1.7-2.4) mg/dl Iron (35-175) mcg/dl TIBC (250-450) mcg/dl Unsaturated IBC (155-355) mcg/dl Transferrin % Sat (20-50) % Ferritin (8-388) ng/ml Vitamin B12 (180-914) pg/ml Folate (>5.38) ng/ml TSH (0.300-4.500) uIu/ml 03/16/22 03/16/22 03/16/22 Range/Units 05:53 05:53 05:53 WBC (4.8-10.8) K/ul RBC (4.63-6.08) M/uL Hgb (14.0-18.0) g/dl Hct (40.1-51.0) % MCV (80.0-100.0) fL MCH (25.0-34.0) pg MCHC (32.0-36.0) g/dL RDW Std Deviation (36.4-46.3) fL RDW Coeff of Joelle (11.5-14.5) % Plt Count (130-400) K/uL MPV (9.4-12.4) fL Sodium (136-145) mmol/L Potassium (3.5-5.1) mmol/L Chloride (98-107) mmol/L Carbon Dioxide (21-32) mmol/L Anion Gap (3-11) BUN (6-23) mg/dl Creatinine (0.6-1.4) mg/dl Est Cr Clr Drug Dosing ml/min Est GFR ( Amer) ml/min Est GFR (Non-Af Amer) ml/min BUN/Creatinine Ratio (10-20) Glucose (70-99(Fasting)) mg/dl POC Glucose (70-99) mg/dl Calcium (8.5-10.1) mg/dl Magnesium (1.7-2.4) mg/dl Iron 42 (35-175) mcg/dl TIBC 335 (250-450) mcg/dl Unsaturated IBC 293 (155-355) mcg/dl Transferrin % Sat 13 L (20-50) % Ferritin (8-388) ng/ml Vitamin B12 399 (180-914) pg/ml Folate 11.27 (>5.38) ng/ml TSH 2.719 (0.300-4.500) uIu/ml 03/16/22 03/16/22 03/15/22 Range/Units 05:53 05:53 20:20 WBC 8.33 (4.8-10.8) K/ul RBC 3.63 L (4.63-6.08) M/uL Hgb 11.0 L (14.0-18.0) g/dl Hct 33.9 L (40.1-51.0) % MCV 93.4 (80.0-100.0) fL MCH 30.3 (25.0-34.0) pg MCHC 32.4 (32.0-36.0) g/dL RDW Std Deviation 49.3 H (36.4-46.3) fL RDW Coeff of Joelle 14.4 (11.5-14.5) % Plt Count 142 (130-400) K/uL MPV 9.4 (9.4-12.4) fL Sodium 136 (136-145) mmol/L Potassium 3.7 (3.5-5.1) mmol/L Chloride 102 (98-107) mmol/L Carbon Dioxide 28 (21-32) mmol/L Anion Gap 6 (3-11) BUN 33 H (6-23) mg/dl Creatinine 1.16 (0.6-1.4) mg/dl Est Cr Clr Drug Dosing 55.8 ml/min Est GFR ( Amer) 64.4 ml/min Est GFR (Non-Af Amer) 55.5 ml/min BUN/Creatinine Ratio 28.4 H (10-20) Glucose 109 H (70-99(Fasting)) mg/dl POC Glucose 118 H (70-99) mg/dl Calcium 8.5 (8.5-10.1) mg/dl Magnesium 2.1 (1.7-2.4) mg/dl Iron (35-175) mcg/dl TIBC (250-450) mcg/dl Unsaturated IBC (155-355) mcg/dl Transferrin % Sat (20-50) % Ferritin 36.2 (8-388) ng/ml Vitamin B12 (180-914) pg/ml Folate (>5.38) ng/ml TSH (0.300-4.500) uIu/ml PG Care Time/CCT Total # of Minutes Spent Total Time Spent with Patient: Total time spent is greater than 50% in coordination of care (as documented) at patient's floor/unit and/or counseling patient: Coding Level of Care Code 57289 Subseq Hosp Care Lvl 3 Diagnoses (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 I50.30 Hypoxia R09.02 Aortic stenosis I35.0 Venous ulcer of left leg I83.029; L97.929 Dyslipidemia E78.5 Hypertension I10 Permanent atrial fibrillation I48.21 Diabetes mellitus type 2, controlled E11.9 Third degree AV block I44.2 Itching L29.9 Diabetic peripheral neuropathy associated with type 2 diabetes mellitus E11.42
[2022-03-16] MEDS: RIVAROXABAN 20 MG TAB PO SCH (17:42)
[2022-03-16] MEDS: FERROUS SULFATE 325 MG TAB PO SCH (18:32)
[2022-03-16] MEDS: POTASSIUM CHLORIDE CRTAB 20 MEQ TABCR PO SCH (20:28)
[2022-03-16] MEDS: DOCUSATE SODIUM 100 MG CAP PO SCH (20:28)
[2022-03-16] MEDS: hydrOXYzine HCl 10 MG TAB PO PRN (22:34)
[2022-03-17 06:48] LABS: Hematocrit (blood only) 36.9 % (40.1-51.0); Hemoglobin 12.1 g/dl (14.0-18.0); Mean Corpuscular Hemoglobin 31.3 pg (25.0-34.0); Mean Corpuscular Hgb Conc 32.8 g/dL (32.0-36.0); Mean Corpuscular Volume 95.3 fL (80.0-100.0); Mean Platelet Volume 9.6 fL (9.4-12.4); Platelet Count 154 K/uL (130-400); RDW Coefficient of Variation 14.8 % (11.5-14.5); RDW Standard Deviation 51.7 fL (36.4-46.3); Red Blood Count 3.87 M/uL (4.63-6.08); White Blood Count 8.96 K/ul (4.8-10.8)
[2022-03-17 07:12] LABS: BUN Creatinine Ratio 28.8 (10-20); Creatinine Clr Calc Pharmacy 54.6 ml/min; Est GFR (Non-African American) 54.4 ml/min; Magnesium 2.2 mg/dl (1.7-2.4)
[2022-03-17] MEDS: amLODIPine BESYLATE 5 MG TAB PO SCH (08:01)
[2022-03-17] MEDS: FUROSEMIDE 40 MG/4 ML VIAL IV SCH (08:01)
[2022-03-17] MEDS: cephALEXin 500 MG CAP PO SCH ×2 (08:01→13:12)
[2022-03-17] MEDS: FERROUS SULFATE 325 MG TAB PO SCH (08:01)
[2022-03-17] MEDS: DOCUSATE SODIUM 100 MG CAP PO SCH (08:01)
[2022-03-17] MEDS: CHOLECALCIFEROL 1,000 UNITS 25 MCG TAB PO SCH (08:01)
[2022-03-17] MEDS: allopurinoL 300 MG TAB PO SCH (08:01)
[2022-03-17] MEDS: SIMVASTATIN 40 MG TAB PO SCH (08:02)
[2022-03-17] MEDS: METOPROLOL SUCC 50MG EXT REL TAB PO SCH (08:02)
[2022-03-17] MEDS: TRIAMCINOLONE ACET 0.1% CR 15 GM TUBE EXT SCH (08:02)
[2022-03-17] MEDS: POTASSIUM CHLORIDE CRTAB 20 MEQ TABCR PO SCH (08:02)
[2022-03-17] MEDS: LOSARTAN POTASSIUM 50 MG TAB PO SCH (08:02)
[2022-03-17] MEDS: LANTUS PER UNIT CHARGE SQ SCH (08:23)
[2022-03-17] MEDS: INSULIN ASPART PER UNIT SC SCH ×2 (08:23→12:52)
[2022-03-17] MEDS ORDERED: GABAPENTIN 100 MG CAP PO SCH (09:00)
--- NOTE | 2022-03-17 13:09 | Discharge Summary ---
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 In the ED the patient was initially found to be afebrile, hemodynamically stable and stable on RA. Per review of his vitals, the patient was noted to be hypoxic at 87% on RA around 1418 and was placed on oxygen at that time. Labs were remarkable for a WBC WNL, stable Hgb, absolute neutrophil count of 7.87, stable renal function and electrolytes, High sensitivity troponin of 11.8, and negative respiratory biofire. Chest xray shows "1. Cardiomegaly with mild interstitial pulmonary edema. Possible small bilateral pleural effusions.. Bibasilar opacities which could reflect atelectasis or consolidation. Radiographic follow-up is recommended.". Prior to admission the patient was ordered 40 mg IV lasix. At the time of the exam the patient was resting comfortably in bed in no acute distress currently on 2L NC with his son sitting bedside, history was obtained from both. They state that he has noticed increased SOB and lower extremity edema for the past 4 days. He normally takes 60 mg PO lasix in the morning but did not take his am dose today as he had a wound care clinic appointment. The patient has been seeing the wound care team for a chronic wound on his left lower extremity, he is currently taking Keflex TID. He states that when he got to the wound care clinic he asked them to get him a wheelchair as he felt more SOB and was unsure he could make it down the [place] walking. He states that they told him his wound is healing well. At the end of his appointment they advised him to be seen in the ED for his SOB to be safe. At the start of my exam I was under the impression that the patient had been given 40 mg IV lasix approximately 30 minutes prior. I turned his oxygen off while I examined him and his SpO2 fell to 88% while he spoke. He denies recent fevers, chills, headache, changes in vision, hearing, taste, and smell, chest pain, cough, abdominal pain, nausea, vomiting, dysuria, hematuria, and recent falls. He does not use oxygen at home and uses Cpap at night. Towards the end of my exam the patient's nurse came in to give him the dose of the IV lasix that was ordered previously, there had been a delay. I spoke to the patient and his son regarding giving him IV lasix and waiting approximately 2 hours to see if it improves his breathing enough for him to go home, they are both in agreement with that plan. I spoke to them regarding code status, he is a limited code, he would not want CPR or defibrillation but would want a trial of intubation. Johanne refer to Dr. Cordova's attestation for any changes to the treatment plan. Principal Diagnosis Acute on chronic HFpEF, severe aortic stenosis Discharge Exam Constitutional WD/WN, vitals as above Eyes + anicteric sclerae Neck trachea midline, no thyromegaly Respiratory normal respiratory effort; no cough Auscultation: + diminished lung sounds (throughout due to body habitus); no crackles, no rhonchi and no wheezes Cardiovascular Rate/Rhythm: regular rate and regular rhythm Heart Sounds: + murmur (3/6 MONIQUE at RUSB) Extremities: + edema (1+ pitting edema to knees bilat, improved) Chest (Breasts) Chest: normal inspection of chest Gastrointestinal (Abdomen) normal bowel sounds, soft, nontender, no hepatosplenomegaly Musculoskeletal Extremities: no cyanosis and no clubbing Skin + ulcer (left anterior leg 0.5cm,left great toe,no erythema) Neurologic moves all extremities and awake; no focal motor deficits Psychiatric A+Ox3, euthymic affect Discharge Data Allergies Allergy/AdvReac Type Severity Reaction Status Date / Time No Known Drug Allergies Allergy Verified 03/21/22 11:24 Consultations 03/14/22 15:45 ED Decision to Admit Stat 03/15/22 14:32 Consult Cardiology Routine 03/16/22 17:57 [facility] [place] CHF Program Referral Routine Hospital Course (1) (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: Presents with hypoxia, dyspnea, elevated BNP, CXR with cardiomegaly, pulm edema, small bilat pleural effusions. With bilat LE edema ECHO 01/2022 with preserved EF and severe -improving now with IV lasix, weight down or kg, I's and O's -3.8 L net negative, peripheral edema modestly improved, dyspnea improved, and now weaned completely off supplemental O2 -He received lasix 40mg IV bid for several days and was discharged home on Lasix 40 Mg p.o. twice daily -Instructed to continue daily weights, low sodium diet and fluid restrict to 1500mL after discharge -consult Cardiology given symptomatic severe appreciated-will get evaluation for TAVR as an outpatient which will also include cardiac catheterization -He was monitored on tele for arrhythmia-has paced rhythm with underlying A. fib permanent -follow BMP, mag and replace lytes as needed as an outpatient-he will follow with the CHF clinic (2) Hypoxia: Acute respiratory failure with hypoxia secondary to Acute pulmonary edema and acute on chronic HFpEF Now completely resolved-no supplemental O2 needed on the day of discharge as. Formal two-step walk test with respiratory therapy Improved with diuresis (3) Aortic stenosis: Severe on recent ECHO, MARISELA 0.79 cm2 with CHF as above Consult Cardiology appreciated-as above Eval for TAVR to be arranged in near future as an outpatient (4) Venous ulcer of left leg: With superficial venous ulcer left anterior leg as well as left great toe -Was seen in wound care clinic on the day of admission and they told the patient his wound is healing well, looks good here on exam -Continue TID Keflex for previous cellulitis and MSSA on wound culture-last day of treatment was 03/17 Consult wound care nurse With stasis dermatitis of the legs-continue ammonium lactate lotion (5) Dyslipidemia: -Continue simvastatin (6) Hypertension: Blood pressures are normal -Continue losartan, amlodipine, and metoprolol as well as Lasix (7) Permanent atrial fibrillation: With paced rhythm on the monitor and underlying permanent atrial fibrillation -Continue xarelto and metoprolol (8) Diabetes mellitus type 2, controlled: Blood glucose is well controlled here and recent hemoglobin A1c well controlled at 6.4% in 01/2022 -Hold metformin while admitted but can restart on discharge (9) Third degree AV block: -S/P pacemaker placement (10) Itching: Patient has excoriated macular lesions all over his anterior chest and shoulders for many months, reports pruritus especially at nighttime Added triamcinolone cream twice daily for now and hydroxyzine as needed-this is helping Recommend follow-up with dermatology as an outpatient for upper body rash. He has been seen by dermatology previously for venous stasis dermatitis of the legs (11) Diabetic peripheral neuropathy associated with type 2 diabetes mellitus: Gabapentin 300mg daily was started about 6 weeks ago and this can rarely cause fluid retention/peripheral edema Decreased dose to 100mg daily for now so as to avoid withdrawal and still help with his neuropathy Plan DVT prophylaxis Xarelto Disposition- stable for discharge home Total Time Total Time Spent Total Time Spent (In Minutes): 35 minutes Discharge Plan Discharge Items Patient Disposition: Home - Self-Care Reason For Visit: SOB Discharge Diagnosis: Acute on chronic diastolic CHF Severe aortic stenosis Acute respiratory failure with hypoxia-resolved Activity: As commented below Bathing: No limitations Exercise/Sports: As tolerated Non-emergency contact: Primary Care Provider and Production Inspector Call non-emergency contact if: you have any medication questions and your symptoms worsen Follow-up/Referrals: Kenyon Bello MD [Physician] - 03/20/22 11:15 am (Please follow up with Dr. Bello within 2 weeks for your aortic valve stenosis.) Tara Benitez MD [Primary Care Provider] - 03/26/22 1:30 pm Freda Nieto PA-C [Physician It Consulting Director] - (Ms. Nieto will contact you with your appointment date and time through the heart failure clinic.) Diet: Carb Consistent or DM2 and Low Sodium (2gm) Fluids: 1500ml (6 cups) Addtl Attending Provider Instructions: Call your Primary Care doctor if any of the following symptoms or problems start or get worse: * Shortness of breath or difficulty breathing * Wake up at night short of breath * Chest pain * Cough * Swelling of your hands, feet, or legs * More fatigued or tired with your normal activity * Palpitations - sudden fast heart beats WEIGHT * Weigh yourself every morning after using the bathroom. * Use the same scale. * Wear the same amount of clothing. * Write your weight down on a chart. * Call your Primary Care doctor if you gain more than 2-3 pounds in 1-2 days. MEDICATIONS * Use this discharge instruction sheet for medication instructions. * Take your medications at the time your doctor ordered. * Do not skip a dose of your medicines. * If you miss a dose of medicine, take it as soon as possible, but DO NOT DOUBLE A DOSE. * Read your medicine information when you get home. * Know all of the side effects of your medicine. If in doubt, ask your pharmacist * Call your Primary Care doctor's office if you have any side effects. * Be sure all of your doctors know what medicine and herbs you take (including cold, flu, and herbal medicine). Take the following with you to your follow-up doctor appointments: * Weight Chart * Medication List * List of questions Do not drink excessive alcohol, beer or wine. Addtl Digital Cartographic Technician Provider Instructions: You had 10 lbs of fluid removed with diuretics while you were here and had improvement. Your congestive heart failure is likely worsened by your severe aortic stenosis which is a narrowing of your heart valve. You will need to follow up closely with the Production Inspector for this to discuss potential heart valve replacement surgery. You should take lasix 40mg twice a day when you return home and keep watch on your sodium intake, fluid intake, and your weight on a daily basis. You were not needing supplemental oxygen anymore on the day of discharge. Your gabapentin dose was lowered down to 100mg daily in case this was also contributing to your fluid retention. You can use the triamcinolone cream as needed for the itchy rash on your shoulders and take hydroxyzine as needed for itching. The hydroxyzine can make you sleepy so would be best to take this at nighttime. You were also found to be iron deficient with a mild anemia. You were started on an iron supplement along with a stool softener as iron pills can cause constipation. Please follow up with your PCP regarding this as well. Pending Studies at Discharge: No Stand-Alone Forms: My [facility], Smoking Cessation Medications and DC Order Prescriptions: New ferrous sulfate 325 mg (65 mg iron) Tablet,Delayed Release (Dr/Ec) 325 mg PO BIDM Qty: 60 0RF Rx Instructions: Over the counter gabapentin 100 mg Capsule 100 mg PO DAILY Qty: 30 0RF hydroxyzine HCl 10 mg Tablet 10 mg PO Q6H PRN (Reason: itching) Qty: 30 0RF docusate sodium 100 mg Capsule 100 mg PO BID Qty: 60 0RF Rx Instructions: Over the counter triamcinolone acetonide 0.1 % Cream 1 applic EXT BID PRN (Reason: itching/rash on chest/shoulders) Qty: 30 0RF Continued metformin 1,000 mg tablet 1,000 mg PO BID ammonium lactate 12 % lotion 1 applic topical DAILY 30 Days Qty: 400 3RF clotrimazole 1 % cream 1 applic topical .COMPLEX Qty: 45 2RF Rx Instructions: 1 applic topical to hands and feet 1-2 times daily as directed. cholecalciferol (vitamin D3) 25 mcg (1,000 unit) capsule 25 mcg PO DAILY metoprolol succinate 100 mg tablet extended release 24 hr 100 mg PO DAILY Qty: 90 3RF Xarelto 20 mg tablet 20 mg PO DAILY Qty: 90 3RF Rx Instructions: must administer with evening meal allopurinol 300 mg tablet 300 mg PO DAILY amlodipine 10 mg tablet 10 mg PO DAILY Qty: 90 losartan 100 mg tablet 100 mg PO DAILY potassium chloride 10 mEq tablet extended release 10 meq PO BID multivitamin tablet 1 tab PO DAILY simvastatin 80 mg tablet 40 mg PO DAILY Changed furosemide 40 mg tablet 40 mg PO BID Qty: 60 0RF Discontinued cephalexin 500 mg capsule 500 mg PO TID 14 Days Qty: 42 0RF gabapentin 300 mg capsule 300 mg PO DAILY Qty: 90 3RF No Action insulin asp prt-insulin aspart [Novolog Mix 70-30 U-100 Insuln] 100 unit/mL (70-30) solution See Rx Instructions subcut .COMPLEX Rx Instructions: subcutaneously; 35 units in the a.m. 14 units in the evening and 10 units at 9 p.m CONFIRMED W/ PATIENT AND SON THE DOSING. Discharge Orders: Discharge Order (Routine); Ordered 03/17/22 Ordered By: Kathleen James/Other Patient Handouts: High Blood Sugar (Hyperglycemia), Managing Type 2 Diabetes Admission Data Admit Date/Time: 03/14/22 18:22 Attending Provider: Kathleen Barron Admit Provider: Emile Cordova Primary Care Provider: Tara Benitez Other Providers: Kenyon Bello ; Freda Nieto Other Interventions: Discharge Summary Assessment (RN) Last Done: 03/17/22 13:29 Coding Level of Care Code D/C DAY MANAGEMENT >30 MINS Diagnoses (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 I50.30 Hypoxia R09.02 Aortic stenosis I35.0 Venous ulcer of left leg I83.029; L97.929 Dyslipidemia E78.5 Hypertension I10 Permanent atrial fibrillation I48.21 Diabetes mellitus type 2, controlled E11.9 Third degree AV block I44.2 Itching L29.9 Diabetic peripheral neuropathy associated with type 2 diabetes mellitus E11.42
== END 2022-03-17 15:25 | disposition home or self-care (01) | DRG 189 ==
LOC: ED 11:40 → SUATTDRO 18:22 → EDINP 18:22 → 2N 03-15 01:30
DX: J81.0 Acute pulmonary edema; E11.42 Type 2 diabetes mellitus with diabetic polyneuropathy; Z79.01 Long term (current) use of anticoagulants; Z79.899 Other long term (current) drug therapy; Z95.0 Presence of cardiac pacemaker; E78.5 Hyperlipidemia, unspecified; Z79.4 Long term (current) use of insulin; I35.0 Nonrheumatic aortic (valve) stenosis; Z87.891 Personal history of nicotine dependence; I11.0 Hypertensive heart disease with heart failure; D64.9 Anemia, unspecified; L97.929 Non-pressure chronic ulcer of unspecified part of left lower leg with unspecified severity; Z79.82 Long term (current) use of aspirin; R09.02 Hypoxemia; I44.2 Atrioventricular block, complete; L29.9 Pruritus, unspecified; I83.029 Varicose veins of left lower extremity with ulcer of unspecified site; I48.21 Permanent atrial fibrillation; I50.33 Acute on chronic diastolic (congestive) heart failure